=== PATIENT | female | born 2000 | race Caucasian/White ===

== ENCOUNTER 2018-02-16 09:00 | Inpatient (IN) | payer SELFPAY ==
[2018-02-16 00:51] VITALS: BMI 26.3
[2018-02-16] MEDS: Lactated Ringers 1,000 ML 50 ML IV (09:11)
[2018-02-16] MEDS: Oxytocin 30 units/NS 500 ml 30 UNITS/500 ML IV.SOLN 334 UNITS IV (09:28)
[2018-02-16 09:38] LABS: Hematocrit 35.7 % (37-47); Hemoglobin 11.8 g/dl (12.0-15.0); Mean Corp Hgb Conc 33.1 g/gl (32-36); Mean Corpuscular Hgb 27.6 pg (27.0-32.0); Mean Corpuscular Volume 83.6 fL (81-99); Mean Platelet Vol. 9.7 fl (6.2-12.0); Platelet Count 169 K/mm3 (150-450); RBC Distribution Width CV 12.9 % (11.6-14.6); RBC Distribution Width SD 38.7 fl (35.1-43.9); Red Blood Count 4.27 M/mm3 (4.2-5.4); White Blood Count 14.2 K/mm3 (4.4-11.0)
[2018-02-16] MEDS: Acetaminophen 325 MG Tablet PO ×2 (09:40→19:57)
[2018-02-16 09:41] LABS: Scan Indicated on CBC? Y/N NO
[2018-02-16] MEDS: Oxytocin 30 units/NS 500 ml 30 UNITS/500 ML IV.SOLN 167 UNITS IV (10:05)
--- NOTE | 2018-02-16 10:23 | PCM.HP.OB ---
- Problem List (1) Hx of renal calculi Status: Resolved (2) History of depression Status: Chronic (3) Anemia affecting Status: Acute Qualifiers: Trimester: third trimester Qualified Code(s): O99.013 - Anemia complicating , third trimester (4) Iron malabsorption Status: Acute Comment: Received IV iron (5) Congenital heart defect Status: Chronic Comment: Hx of leaky valve - last saw [employer] Crew Chief in [place], [place]. Echo and Heart Monitor WNL History Date of Admission: 02/16/18 Final CAROL: 02/25/18 Final CAROL Source: US <20 weeks Gestational age: 38 Weeks and 5 Days History of this : This is a 17 year-old, G [2], P [1], at 38 weeks gestational age who presented to triage reporting progressively stronger contractions throughout the night that are now 3-5 minutes apart and feelings of increased rectal pressure. Patient initiated care at [facility] at 7 weeks gestation x 15 visits. course has been complicated by chronic depression and anxiety for which she has been prescribed Zoloft 50mg PO daily. Patient also was noted to be anemic and unresponsive to PO iron supplementation so she received IV iron supplementation. Otherwise course has been unremarkable. Allergies No Known Allergies Allergy (Verified 02/16/18 01:02) Home Medications: Home Medications Ferrous Sulfate 1 cap PO DAILY 11/16/15 Pnv95/Iron Fum/Folic Acid [ Caplet] 1 each PO DAILY 11/16/15 Zoloft 50mg PO daily Smoking Status: Never smoker Alcohol: None Number of Fetus(es): 1 Heart Tracing: Baseline 130 on admission, early and variable decels noted with pushing. Moderate variability. TOCO Analysis: Ctx q 2-5 minutes apart, palpate strong History Past Pregnancies: Past Pregnancies Delivery Date Name GA/Weeks Outcome Route Weight Gender Labor Length Anesthesia Delivery Location Provider FOB 05/27/15 Eamon 41wks Live 8#2oz M Epidural Labs: GBS Neg, HIV NR, HepBsAg Neg, Rubella Immune, Syphilis Neg, H/H = 10.2/32.8 -->9.1/28.1 -->10.7/33.6, 1 hour GCT = 100, A+, Abs Screen Neg, Urine culture Neg, Urine Tox Neg, GC/CT = Neg/ Neg Expected Delivery Method: Spontaneous Vaginal Describe any other labor & delivery plans:: Interested in Nitrous, would like to avoid epidural Number of Visits: 15 Review of Systems Constitutional: Denies: Chills, Fever, Weight Change HEENT: Denies: Head Aches, Sinus Congestion, Sinus Drainage Cardiovascular: Denies: Chest Pain, Palpitations Respiratory: Denies: Cough, Shortness of breath at rest, Sputum production Gastrointestinal: Denies: Abdominal Pain, Nausea, Vomiting Genitourinary: Denies: Dysuria Musculoskeletal: Denies: Joint Pain, Joint Tenderness Skin: Denies: Rash, Wounds Neurological: Denies: Numbness, Tingling, Focal weakness Psychiatric: Denies: Anxiety, Depression, Homicidal Ideations, Suicidal Ideations Hematologic/ Lymphatic: Denies: Easy Bruising, Easy Bleeding Physical Exam Vitals: See Nursing Note - VSS and patient is afebrile General: Alert, Oriented x3, No apparent distress HEENT: Atraumatic, Normocephalic. Negative for: Thyromegaly, Lymphadenopathy Cardiovascular: Regular rate, Regular Rhythm Lungs: Clear to auscultation Abdomen: Bowel Sounds Present, Gravid Neurological: Deep Tendon Reflexes 2+/4 and Symmetrical, Neuro grossly intact COURT INTERPRETER: Normal external genitalia. Negative for: Vulvar lesions Estimated gestational size: Appropriate for gestational size Presentation: Cephalic Cervix Dilation (cm): 10 - BBOW, AROM for clear fluid Station: 0 Effacement (%): 100 Assessment/Plan All Active Problems Hx of renal calculi (Resolved) Anemia affecting (Acute) Iron malabsorption (Acute) This is a 17 year-old, G [2], P [1], at 38 weeks gestational age, Category I FHT, Second Stage of Labor P: 1) Admit patient 2) Anticipate Jory Coy BLUE PRINT CONTROL CLERK-CNM
--- NOTE | 2018-02-16 10:32 | HP.PCM_ITS ---
- Problem List (1) Hx of renal calculi Status: Resolved (2) History of depression Status: Chronic (3) Anemia affecting Status: Acute Qualifiers: Trimester: third trimester Qualified Code(s): O99.013 - Anemia complicating , third trimester (4) Iron malabsorption Status: Acute Comment: Received IV iron (5) Congenital heart defect Status: Chronic Comment: Hx of leaky valve - last saw [employer] in [place], [place]. Echo and Heart Monitor WNL History Date of Admission: 02/16/18 Final CAROL: 02/25/18 Final CAROL Source: US <20 weeks Gestational age: 38 Weeks and 5 Days History of this : This is a 17 year-old, G [2], P [1], at 38 weeks gestational age who presented to triage reporting progressively stronger contractions throughout the night that are now 3-5 minutes apart and feelings of increased rectal pressure. Patient initiated care at [facility] at 7 weeks gestation x 15 visits. course has been complicated by chronic depression and anxiety for which she has been prescribed Zoloft 50mg PO daily. Patient also was noted to be anemic and unresponsive to PO iron supplementation so she received IV iron supplementation. Otherwise course has been unremarkable. Allergies No Known Allergies Allergy (Verified 02/16/18 01:02) Home Medications: Home Medications Ferrous Sulfate 1 cap PO DAILY 11/16/15 Pnv95/Iron Fum/Folic Acid [ Caplet] 1 each PO DAILY 11/16/15 Zoloft 50mg PO daily Smoking Status: Never smoker Alcohol: None Number of Fetus(es): 1 Heart Tracing: Baseline 130 on admission, early and variable decels noted with pushing. Moderate variability. TOCO Analysis: Ctx q 2-5 minutes apart, palpate strong History Past Pregnancies: Past Pregnancies Delivery Date Name GA/Weeks Outcome Route Weight Gender Labor Length Anesthesia Delivery Location Provider FOB 05/27/15 Eamon 41wks Live 8#2oz M Epidural Labs: GBS Neg, HIV NR, HepBsAg Neg, Rubella Immune, Syphilis Neg, H/H = 10.2/32.8 -->9.1/28.1 -->10.7/33.6, 1 hour GCT = 100, A+, Abs Screen Neg, Urine culture N eg, Urine Tox Neg, GC/CT = Neg/ Neg Expected Infant Delivery Method: Spontaneous Vaginal Describe any other labor & delivery plans:: Interested in Nitrous, would like to avoid epidural Number of Visits: 15 Review of Systems Constitutional: Denies: Chills, Fever, Weight Change HEENT: Denies: Head Aches, Sinus Congestion, Sinus Drainage Cardiovascular: Denies: Chest Pain, Palpitations Respiratory: Denies: Cough, Shortness of breath at rest, Sputum production Gastrointestinal: Denies: Abdominal Pain, Nausea, Vomiting Genitourinary: Denies: Dysuria Musculoskeletal: Denies: Joint Pain, Joint Tenderness Skin: Denies: Rash, Wounds Neurological: Denies: Numbness, Tingling, Focal weakness Psychiatric: Denies: Anxiety, Depression, Homicidal Ideations, Suicidal Ideations Hematologic/ Lymphatic: Denies: Easy Bruising, Easy Bleeding Physical Exam Vitals: See Nursing Note - VSS and patient is afebrile General: Alert, Oriented x3, No apparent distress HEENT: Atraumatic, Normocephalic. Negative for: Thyromegaly, Lymphadenopathy Cardiovascular: Regular rate, Regular Rhythm Lungs: Clear to auscultation Abdomen: Bowel Sounds Present, Gravid Neurological: Deep Tendon Reflexes 2+/4 and Symmetrical, Neuro grossly intact MEDICAL EQUIPMENT SALES: Normal external genitalia. Negative for: Vulvar lesions Estimated gestational size: Appropriate for gestational size Presentation: Cephalic Cervix Dilation (cm): 10 - BBOW, AROM for clear fluid Station: 0 Effacement (%): 100 Assessment/Plan All Active Problems Hx of renal calculi (Resolved) Anemia affecting (Acute) Iron malabsorption (Acute) This is a 17 year-old, G [2], P [1], at 38 weeks gestational age, Category I FHT, Second Stage of Labor P: 1) Admit patient 2) Anticipate Jory Coy APRN-CNFátima
--- NOTE | 2018-02-16 10:57 | PCM.OB.VAG ---
- Problem List (1) Hx of renal calculi Status: Resolved (2) History of depression Status: Chronic (3) Anemia affecting Status: Acute Qualifiers: Trimester: third trimester Qualified Code(s): O99.013 - Anemia complicating , third trimester (4) Iron malabsorption Status: Acute Comment: Received IV iron (5) Congenital heart defect Status: Chronic Comment: Hx of leaky valve - last saw Psychiatric Security Nurse in [place], [place]. Echo and Heart Monitor WNL Vaginal Delivery Maternal Presentation: Active Labor - presented c/c/0 with BBOW Amniotic Membrane Rupture Type: Artificial Amniotic Fluid Description: Clear Final CAROL: 02/25/18 Gestational age: 38 Weeks and 5 Days Date of Procedure: 02/16/18 Pre-Operative Diagnosis: Spontaneous Labor, Second Stage of Labor Post-Operative Diagnosis: of viable boy baby Surgery/ Procedure Performed: Spontaneous Vaginal Delivery Type of Anesthesia: None Description of Procedure: After AROM for clear fluid upon noting patient was C/C/0 station, patient started to feel urge to bear down. Patient pushed well with urge and delivered viable boy baby over intact perineum at 0925. Infant head delivered OA, restituted to LOT then to RUFINO. Loose nuchal cord and body cord noted and baby was somersaulted through cord as shoulders and body were delivered. initially with a weak cry, placed on maternal abdomen where baby was dried and stimulated and mouth and nose was bulb suctioned. Umbilical cord clamped and cut then as infant was remaining slightly pale with mottling on face, but then started to have strong cry and improved tone and color. Apgars 7 and 9. Wt. 8#7oz. Cord gases drawn - only enough of sample for VBG to be sent. Placenta then delivered spontaneously via Wall mechanism intact with 3VC. Placental triage WNL. FF to massage, 1FB midline below umbilicus. Pitocin IV infusion given per protocol for active management of the 3rd stage. Upon inspection of vaginal vault, no lacerations noted. No repair necessary. Sponge and needle count correct. Vaginal sweep negative. EBL = 200cc. Baby to breast, bonding and [id number] initiated. Presentation: Vertex, RUFINO Placental Delivery Description: Spontaneous Placenta Disposition: [facility] Cord Vessel Description: 3 Vessels Nuchal Cord Compression: Without compression Cord Gases drawn per routine: VBG - not enough blood to draw ABG Cord Entanglement: Around neck x 1, loose - also loose body cord entanglement Estimated Blood Loss: 200 Infant A gender: Male (1 minute): 7 (5 minute): 9 Episiotomy Description: None Laceration: None Medications given after delivery: IV Pitocin Complications: None
[2018-02-16] MEDS: Ibuprofen 600 MG Tablet PO ×2 (11:07→22:41)
--- NOTE | 2018-02-16 11:09 | OP.PCM_ITS ---
- Problem List (1) Hx of renal calculi Status: Resolved (2) History of depression Status: Chronic (3) Anemia affecting Status: Acute Qualifiers: Trimester: third trimester Qualified Code(s): O99.013 - Anemia complicating , third trimester (4) Iron malabsorption Status: Acute Comment: Received IV iron (5) Congenital heart defect Status: Chronic Comment: Hx of leaky valve - last saw Acting Manager in [place], [place]. Echo and Heart Monitor WNL Vaginal Delivery Maternal Presentation: Active Labor - presented c/c/0 with BBOW Amniotic Membrane Rupture Type: Artificial Amniotic Fluid Description: Clear Final CAROL: 02/25/18 Gestational age: 38 Weeks and 5 Days Date of Procedure: 02/16/18 Pre-Operative Diagnosis: Spontaneous Labor, Second Stage of Labor Post-Operative Diagnosis: of viable boy baby Surgery/ Procedure Performed: Spontaneous Vaginal Delivery Type of Anesthesia: None Description of Procedure: After AROM for clear fluid upon noting patient was C/C/0 station, patient started to feel urge to bear down. Patient pushed well with urge and delivered viable boy baby over intact perineum at 0925. Infant head delivered OA, restitu anali to LOT then to RUFINO. Loose nuchal cord and body cord noted and baby was somersaulted through cord as shoulders and body were delivered. Infant initially with a weak cry, infant placed on maternal abdomen where baby was dried and stimulated and mouth and nose was bulb suctioned. Umbilical cord clamped and cut then as was remaining slightly pale with mottling on face, but then infant started to have strong cry and improved tone and color. Apgars 7 and 9. Wt. 8#7oz. Cord gases drawn - only enough of sample for VBG to be sent. Placenta then delivered spontaneously via Wall mechanism intact with 3VC. Placental triage WNL. FF to massage, 1FB midline below umbilicus. Pitocin IV infusion given per protocol for active management of the 3rd stage. Upon inspection of vaginal vault, no lacerations noted. No repair necessary. Sponge and needle count correct. Vaginal sweep negative. EBL = 200cc. Baby to breast, bonding and [id number] initiated. Presentation: Vertex, RUFINO Placental Delivery Description: Spontaneous Placenta Disposition: [facility] Cord Vessel Description: 3 Vessels Nuchal Cord Compression: Without compression Cord Gases drawn per routine: VBG - not enough blood to draw ABG Cord Entanglement: Around neck x 1, loose - also loose body cord entanglement Estimated Blood Loss: 200 A gender: Male (1 minute): 7 (5 minute): 9 Episiotomy Description: None Laceration: None Medications given after delivery: IV Pitocin Complications: None
[2018-02-16] MEDS: Sertraline 50 MG Tablet PO (11:40)
[2018-02-16 13:10] VITALS: BP 132/60; PULSE 60; RESP 16; TEMP 36.5; O2SAT 96
[2018-02-16 16:00] VITALS: BP 130/85; PULSE 71; RESP 14; TEMP 36.6; O2SAT 98
[2018-02-16 19:57] VITALS: BP 122/64; PULSE 75; RESP 16; TEMP 37.1; O2SAT 96
[2018-02-17 00:43] VITALS: BP 123/68; PULSE 70; RESP 16; TEMP 37.1; O2SAT 98
--- NOTE | 2018-02-17 07:08 | DCINST_ITS ---
Discharge Diet: No Restrictions Discharge Activity: Return to Normal Activity, May not drive while taking narcotic pain medications., May Shower May resume sexual activity in: 4-6 weeks Additional Activity Instructions:: Nothing in the vagina for 4-6 weeks. You may return to work/school in 6 weeks. Call your doctor if your incision/area has: Continuous Slow Oozing, Sudden Increased Bleeding, Increased Pain/ Swelling, Increased Redness, Foul Smelling Discharge Call your doctor if you observe: Fever of 101 or Higher, Inability to urinate, Inability to have a bowel movement, Using more than one pad per hour, Shortness of breath, Fainting spells, Chest pain Additional Instructions: If you experience any of the following, contact your healthcare provider. * Bleeding that soaks a pad every hour for 2 hours * Fever 100.4 or higher * Unrelieved incision or abdominal pain * Swelling, redness, discharge or bleeding from your incision or episiotomy site * Your incision begins to separate * Problems urinating (including inability to urinate or burning while urinating). * Visual changes * Severe headache * Flu-like symptoms * Pain or redness in one of both of your breasts * Pain, warmth, tenderness or swelling in your legs, especially the calf area * Frequent nausea and vomiting * Symptoms of depression or anxiety If you experience any of the following, call 911 or go to the nearest Emergency Room. * Chest pain * Problems breathing * Seizure activity * Partial or complete paralysis of a body part, slurred speech, weakness or drooping of the face, or a sudden inability to walk or hold your balance Allergies/Adverse Reactions: Allergies No Known Allergies Allergy (Verified 02/16/18 01:02) Medications to take at Discharge Ferrous Sulfate 1 cap PO DAILY 11/16/15 Pnv95/Iron Fum/Folic Acid [ Caplet] 1 each PO DAILY 11/16/15 Please Follow Up With: Jory Coy CNM When: Call to make an appointment with your provider in 2 and 6 weeks. If you had elevated Blood Pressure or 4th degree laceration you will need to be seen in 1 week. Primary Care Physician: Pattie Pop MD [Primary Care Provider] - Test Results: Test results from this visit will be discussed in further detail at your follow- up appointment, if applicable. Proposed Discharge Date: 02/17/18
--- NOTE | 2018-02-17 07:33 | PCM.PN.OB ---
Patient Problems: Active and Suspected Problems Anemia affecting (Acute) Iron malabsorption (Acute) Received IV iron Subjective: Patient sitting up in bed bonding with infant at this time. Denies any issues with urination or ambulation. Denies fever, WONG, scotoma or dizziness. Patient notes that baby is latching well and she denies any issues with . Patient desires discharge to home today pending discharge. Objective: VSS, Afebrile Nipples without cracks or blisters, no erythema noted Abdomen NT x 4 quadrants, FF midline @ 2FB below umbilicus Scant rubra lochia, intact perineum +2/4 reflexes in LE, no edema noted Negative calf tenderness to palpation BL in LE - Physical Exam General: Alert, Oriented x3, Cooperative HEENT: Atraumatic, Normocephalic Neck: Supple Lungs: Clear to auscultation, Normal air movement Cardiovascular: Regular rate, No murmurs Abdomen: Bowel Sounds Present, Soft, Non Tender Extremities: No edema, Capillary Refill Less than 3 Seconds Skin: No rashes, No breakdown Musculoskeletal: No Tenderness to Palpation of Joints or Extremities Neurological: Cranial nerves II-XII grossly intact Psych/Mental Status: Normal Affect, Appropriate Vital Signs Temp Pulse Resp BP Pulse Ox 98.7 F 70 16 123/68 H 98 02/17/18 00:43 02/17/18 00:43 02/17/18 00:43 02/17/18 00:43 02/17/18 00:43 Oxygen Delivery Method Room Air Weight: 139 lb 6 oz Body Mass Index (BMI) 26.3 Intake and Output for Last 24 Hours 02/15/18 02/16/18 02/17/18 23:59 23:59 23:59 Intake Total 200 / 200 Balance 200 / 200 Laboratory Tests Past 24 Hrs 02/16/18 02/16/18 09:09 09:09 WBC 14.2 H RBC 4.27 Hgb 11.8 L Hct 35.7 L MCV 83.6 MCH 27.6 MCHC 33.1 RDW 12.9 RDW Differential 38.7 Plt Count 169 MPV 9.7 Blood Type A POSITIVE Antibody Screen NEGATIVE Medical Necessity - Tobacco Use Smoking Status: Never smoker Assessment/Plan All Active Problems Hx of renal calculi (Resolved) Anemia affecting (Acute) Iron malabsorption (Acute) 17 y/o now, s/p , PPD #1, Normal PP Course P: 1) Discharge to home pending discharge 2) Anticipatory PP discharge teaching done 3) RTC at [facility] at 2 and 6 weeks PP Jory SAWANT
[2018-02-17 08:30] VITALS: BP 107/56; PULSE 70; RESP 16; TEMP 36.4
[2018-02-17] MEDS: Senna/Docusate Sodium 1 Tablet PO (08:52)
[2018-02-17] MEDS: Acetaminophen 325 MG Tablet PO (08:52)
[2018-02-17] MEDS: Sertraline 50 MG Tablet PO (11:41)
[2018-02-17] MEDS: Ibuprofen 600 MG Tablet PO (11:41)
--- NOTE | 2018-02-17 12:45 | NURSING ---
Patient has a social service agency director consult ordered d/t history of post depression and 17 year old. Patient D/C'd at 24 hours. Ornamenter Hand okay with patient receiving a follow up phone call from home health care social worker since no one is available today to see her. Patient explained signs and symptoms of post depression and is very aware and willing to seek help when needed. Supportive family members.
--- NOTE | 2018-02-21 15:08 | CASEMGMT ---
Social Work Labor and Delivery Unit Received message from Mely IRELAND regarding social work consult for history of depression and discharge within 24 hours. Mely left number of [phone] to call patient at. Chart reviewed and this program writer familiar with patient from previous delivery at [facility]. Called number to patient and had to leave a voice mail. Message left to call this program writer for resources. -KYLER Mcnair, PUBLIC TRANSPORTATION INSPECTOR
== END 2018-02-17 14:00 | disposition home or self-care (01) | DRG 806 ==
LOC: WPOUT 09:15
PROVIDERS: Advanced Practice Midwife; Admitting Provider Obstetrics & Gynecology; Family Provider Pediatrics; PCP Pediatrics; Referring Provider Obstetrics & Gynecology; Visit Provider Obstetrics & Gynecology
DX: O69.81X0 Labor and delivery complicated by cord around neck, without compression, not applicable or unspecified (principal); K90.9 Intestinal malabsorption, unspecified; Z37.0 Single live birth; Z3A.38 38 weeks gestation of pregnancy; D64.9 Anemia, unspecified; O99.02 Anemia complicating childbirth; Q24.9 Congenital malformation of heart, unspecified; F32.9 Major depressive disorder, single episode, unspecified; F41.9 Anxiety disorder, unspecified; O99.344 Other mental disorders complicating childbirth; O76 Abnormality in fetal heart rate and rhythm complicating labor and delivery
CPT/HCPCS: 59025; 59050; 85027; 86850; 86900; 99218; J7120; G0378

== ENCOUNTER → 2019-10-30 09:47 | Outpatient (CLI) | payer BC, MEDICAID, SELFPAY ==
[2019-10-30 09:00] VITALS: BMI 17.7
[2019-10-30 12:52] LABS: Absolute Lymphocyte Count 1.99 X10^3/uL (0.83-4.51); Absolute Neutrophil Count 2.2 X10^3/uL (2.0-7.7); Basophil# 0.02 X10^3/uL; Basophil% 0.4 % (0-1); Eosinophil# 0.08 X10^3/uL; Eosinophils% 1.7 % (0-5); Hematocrit 38.2 % (40-54); Lymphocyte # 1.99 X10^3/ul (4.0); Lymphocyte % 43.2 % (19-41); Mean Corp Hgb Conc 31.4 g/dL (32-36); Mean Corpuscular Hgb 26.1 pg (27.0-32.0); Mean Platelet Vol. 9.9 fl (6.2-12.0); Monocyte# 0.31 X10^3/uL; Monocyte% 6.7 % (0-10); NRBC Flagged by Analyzer 0 % (0-5); Neutrophil % 47.8 % (47-70); Platelet Count 247 K/mm3 (150-450); RBC Distribution Width CV 11.7 % (11.6-14.6); RBC Distribution Width SD 35.1 fl (35.1-43.9); White Blood Count 4.6 K/mm3 (4.4-11.0)
[2019-10-30 13:21] LABS: ALB/GLOB Ratio 1.2 RATIO (0.9-2.4); AST(SGOT) 16 U/L (15-37); Alanine Aminotransfer ALT/SGPT 18 U/L (16-61); Albumin, Serum 4.1 g/dL (3.2-5.0); Alkaline Phosphatase 69 U/L (45-117); Anion Gap 6 (5-15); BUN 16 mg/dL (7-18); Calcium,Total 8.7 mg/dL (8.5-10.1); Chloride 108 mmol/L (98-107); Creatinine, Serum 0.59 mg/dL (0.70-1.30); EST Glomerular Filtration Rate 182 mL/min (>60); Est Glom Filt Rate - Afr Amer 221 mL/min (>60); Ferritin 80 ng/mL (26-388); Globulin 3.5 g/dL (2.2-4.2); Glucose 80 mg/dL (74-106); Iron 82 ug/dL (65-175); Iron Binding Capacity,Total 339 ug/dL (250-450); PERCENT IRON SATURATION 24.2 % (15.0-55.0); Potassium 3.9 mmol/L (3.5-5.1); Protein, Total 7.6 g/dL (6.4-8.2); Sodium Level 141 mmol/L (136-145); T4 Free Direct 0.95 ng/dL (0.76-1.46); Thyroid Stim Hormone (TSH) 0.79 uIU/mL (0.358-3.74)
== END ==
PROVIDERS: PCP Internal Medicine; Referring Provider Nurse Practitioner Family; Visit Provider Nurse Practitioner Family
DX: D50.9 Iron deficiency anemia, unspecified (principal); R42 Dizziness and giddiness; R55 Syncope and collapse; R63.4 Abnormal weight loss
CPT/HCPCS: 36415; 80053; 82728; 83540; 83550; 84439; 84443; 85025

== ENCOUNTER → 2019-11-28 15:38 | Outpatient (CLI) | payer BC, MEDICAID, SELFPAY ==
[2019-11-26 13:04] VITALS: BMI 17.7
[2019-11-28 17:09] LABS: Absolute Lymphocyte Count 2.31 X10^3/uL (0.83-4.51); Absolute Neutrophil Count 3.6 X10^3/uL (2.0-7.7); Basophil# 0.03 X10^3/uL; Basophil% 0.5 % (0-1); Eosinophil# 0.11 X10^3/uL; Eosinophils% 1.7 % (0-5); Hematocrit 38.8 % (40-54); Hemoglobin 12.1 g/dL (13.0-16.5); Lymphocyte # 2.31 X10^3/ul (4.0); Lymphocyte % 35.4 % (19-41); Mean Corp Hgb Conc 31.2 g/dL (32-36); Mean Corpuscular Hgb 26.2 pg (27.0-32.0); Mean Corpuscular Volume 84.2 fL (80-94); Mean Platelet Vol. 10.4 fl (6.2-12.0); Monocyte# 0.44 X10^3/uL; Monocyte% 6.7 % (0-10); NRBC Flagged by Analyzer 0 % (0-5); Neutrophil # 3.61 X10^3/uL (2.7-7.7); Neutrophil % 55.4 % (47-70); Platelet Count 234 K/mm3 (150-450); RBC Distribution Width SD 36.4 fl (35.1-43.9); Red Blood Count 4.61 M/mm3 (4.6-6.2); White Blood Count 6.5 K/mm3 (4.4-11.0)
[2019-11-28 18:16] LABS: Anion Gap 6 (5-15); BUN 12 mg/dL (7-18); Calcium,Total 9.2 mg/dL (8.5-10.1); Chloride 112 mmol/L (98-107); EST Glomerular Filtration Rate 150 mL/min (>60); Est Glom Filt Rate - Afr Amer 181 mL/min (>60); Glucose 59 mg/dL (74-106); Potassium 3.6 mmol/L (3.5-5.1); Sodium Level 144 mmol/L (136-145)
[2019-11-28 18:30] LABS: Internal QC Validated? YES +Cl - CLEAR BKGD; Pregnancy, Serum, hCG Quali. NEGATIVE Negative
== END ==
PROVIDERS: PCP Nurse Practitioner Family; Visit Provider Internal Medicine Cardiovascular Disease
DX: R55 Syncope and collapse (principal); D64.9 Anemia, unspecified; I95.1 Orthostatic hypotension; R00.2 Palpitations
CPT/HCPCS: 36415; 80048; 84703; 85025

== ENCOUNTER → 2019-12-16 08:17 | Outpatient (CLI) | payer BC, MEDICAID, SELFPAY ==
[2019-11-26 13:04] VITALS: BMI 17.7
[2019-12-16 08:49] LABS: Internal QC Validated? YES +Cl - CLEAR BKGD; Pregnancy, Serum, hCG Quali. NEGATIVE Negative
--- NOTE | 2019-12-17 17:49 | PCM.TILTTABL ---
- Summary Pre Test Resting HR: 64 Pre Test Resting BP: 102/64 Minimum Test HR: 50 Maximum Test HR: 113 Minimum Test BP: 90/53 Maximum Test BP: 107/59 Physician Tilt Table Report - Patient's Physicians Primary Care Physician: Tye Brownlee NP Indications/Diagnosis: Syncope Procedure Comments: The patient was brought to the noninvasive lab in the postabsorptive nonsedated state. Initial heart rate was noted to be sinus rhythm with a rate of 71 bpm. Initial blood pressure was 99/58 mmHg. The patient was placed in the 70 degree head upright tilt position. After 20 minutes the patient was noted to be in sinus rhythm with normal blood pressure and minimal symptoms other than nausea. After that the patient was placed back in the recumbent position and given sublingual nitroglycerin 0.4 mg. The patient was then put up in the head upright sitting to a 70 degree tilt position. The patient maintained blood pressure and heart rate with occasional dizziness but no other symptomatology.. Summary: Negative head upright tilt table test with no evidence of syncope noted.
[2019-12-17 17:58] VITALS: BP 102/64; BP 107/59; BP 90/53
== END ==
PROVIDERS: PCP Nurse Practitioner Family; Referring Provider Internal Medicine Cardiovascular Disease; Visit Provider Internal Medicine Cardiovascular Disease
DX: I95.1 Orthostatic hypotension (principal); R00.2 Palpitations
CPT/HCPCS: 36415; 84703; 93660; J7040; A4216

== ENCOUNTER 2020-06-19 14:09 | Emergency (ER) | payer MEDICAID, SELFPAY ==
[2020-01-08 16:07] VITALS: BMI 16.8
[2020-06-19 14:10] VITALS: BP 117/67; PULSE 60; RESP 16; TEMP 36.2; O2SAT 100; BMI 18.7
--- NOTE | 2020-06-19 14:40 | EKG12_ITS ---
Test Reason : PASSOUTED Blood Pressure : / mmHG Vent. Rate : 061 BPM Atrial Rate : 061 BPM P-R Int : 180 ms QRS Dur : 100 ms QT Int : 412 ms P-R-T Axes : 062 060 081 degrees QTc Int : 414 ms Normal sinus rhythm with sinus arrhythmia Confirmed by KAREN ATKINSON, ELSI ([id number]), video news editor ROMIE VILLA ([id number]) on 06/22/2020 11:05:43 AM Referred By: SHAHLA Confirmed By:ELSI JONES MD
--- NOTE | 2020-06-19 14:57 | CT_ITS ---
STUDY: CT BRAIN WITHOUT CONTRAST REASON FOR EXAM: Female, 20 years old. Fall trauma head pain after injury RADIATION DOSAGE (If Supplied By Facility): CTDIvol = ( 38.43 ) mGy, DLP = ( 683.87 ) mGycm TECHNIQUE: Transaxial CT imaging of the brain was performed without administration of intravenous contrast material. Individualized dose optimization techniques were used for this CT. COMPARISON: No relevant priors. FINDINGS: Brain parenchyma is without focal lesions, mass effect, acute intracranial hemorrhage, extra parenchymal fluid collections, hydrocephalus or herniation. The skull is intact. CT/Brain/Head without Contrast IMPRESSION: 1. Normal CT brain. Electronically Signed: Alex Gonzalez MD at 16:07 EDT Tel , Service support ,
--- NOTE | 2020-06-19 15:10 | RAD_ITS ---
STUDY: X-RAY - LEFT ELBOW REASON FOR EXAM: Female, 20 years old. Fall trauma TECHNIQUE: 3 view(s) of the elbow. COMPARISON: None. FINDINGS: The bones of the elbow are intact and located. Mineralization is normal. Soft tissues are intact. There is no joint effusion. RAD/Elbow min 3 Views IMPRESSION: Normal x-ray examination of the elbow. Electronically Signed: Alex Gonzalez MD at 15:53 EDT Tel , Service support ,
[2020-06-19] MEDS: 0.9% Normal Saline 1,000 ML 1000 ML IV (15:23)
[2020-06-19 15:39] LABS: Absolute Lymphocyte Count 1.42 X10^3/uL (0.83-4.51); Absolute Neutrophil Count 5.3 X10^3/uL (2.0-7.7); Basophil# 0.03 X10^3/uL; Basophil% 0.4 % (0-1); Eosinophil# 0.09 X10^3/uL; Eosinophils% 1.2 % (0-5); Hematocrit 39.2 % (37-47); Hemoglobin 12.2 g/dL (12.0-15.0); Lymphocyte # 1.42 X10^3/ul (0.83-4.51); Lymphocyte % 19.3 % (19-41); Mean Corp Hgb Conc 31.1 g/dL (32-36); Mean Corpuscular Hgb 25.8 pg (27.0-32.0); Mean Corpuscular Volume 82.9 fL (81-99); Mean Platelet Vol. 9.2 fl (6.2-12.0); Monocyte# 0.47 X10^3/uL; Monocyte% 6.4 % (0-10); NRBC Flagged by Analyzer 0 % (0-5); Neutrophil # 5.32 X10^3/uL (2.7-7.7); Neutrophil % 72.3 % (47-70); Platelet Count 246 K/mm3 (150-450); RBC Distribution Width CV 11.7 % (11.6-14.6); RBC Distribution Width SD 35.5 fl (35.1-43.9); Red Blood Count 4.73 M/mm3 (4.2-5.4); White Blood Count 7.4 K/mm3 (4.4-11.0)
[2020-06-19 15:52] LABS: Internal QC Validated? YES +Cl - CLEAR BKGD; Pregnancy, Serum, hCG Quali. NEGATIVE Negative
[2020-06-19 15:58] LABS: Anion Gap 5 (5-15); BUN 13 mg/dL (7-18); BUN/Creat Ratio 19.6 RATIO (10-20); Calcium,Total 8.8 mg/dL (8.5-10.1); Chloride 108 mmol/L (98-107); Creatinine, Serum 0.66 mg/dL (0.55-1.02); EST Glomerular Filtration Rate 118 mL/min (>60); Est Glom Filt Rate - Afr Amer 143 mL/min (>60); Estimated Creatinine Clearance 91.91 ml/min; Glucose 86 mg/dL (74-106); Sodium Level 139 mmol/L (136-145)
--- NOTE | 2020-06-19 15:58 | EDS_ITS ---
HPI History of Present Illness Chief Complaint: Syncope Narrative Narrative: Patient reports that just before coming to the emergency department she was urinating. She went to stand up and had a syncopal episode. States that this was preceded by lightheadedness and nausea. States that she did hit her head. She is unsure about a loss of consciousness. Patient reports that she has pain to her left elbow that is 4-10 severity. She denies neck, back, shoulder, wrist, or hip pain. She reports that she has a headache that is barely there. [facility] Medical History (Updated 06/19/20 @ 16:[address] Jose Alejandro Stratton MD) Anemia Anemia affecting Congenital heart defect History of depression Hx of renal calculi Hypotension Iron malabsorption Migraines Home Medications norelgestromin-ethin.estradiol [Zafemy] 1 patch TOPICAL QWEEK 06/19/20 [History Last Taken Unknown] Allergy/AdvReac Type Severity Reaction Status Date / Time No Known Allergies Allergy Verified 06/19/20 14:35 Family History Grandmother Diabetes CVA (cerebral vascular accident) Mother Myocardial infarction Hypertension CVA (cerebral vascular accident) Sister Seizures Social History Smoking Status: Never smoker alcohol intake: never substance use type: does not use ROS ROS ED Constitutional Constitutional ED: Reports chills; Denies fever(s) or sweats Eyes Eyes: Denies change in vision ENT ENT ED: Denies sore throat Cardiovascular Cardiovascular: Denies chest pain Respiratory/Chest Respiratory/Chest: Denies cough, dyspnea or dyspnea on exertion Gastrointestinal Gastrointestinal: Reports nausea; Denies abdominal pain, diarrhea, melena or vomiting Genitourinary Genitourinary ED: Reports LMP (females 10-50) Details: Comment: (On menstrual period now.); Denies dysuria or urinary frequency Musculoskeletal Musculoskeletal: Denies myalgias Integumentary Denies rash Neurologic Neurologic: Reports headache(s); Denies paresthesias or weakness EXAM Physical Exam Const Vital Signs: 06/19/20 14:10 06/19/20 14:39 Temperature 97.2 F L Temperature Source Temporal Pulse Rate 60 Respiratory Rate 16 Respiratory Effort Normal Non-Labored Respiratory Pattern Normal Blood Pressure 117/67 Blood Pressure Mean 83 Pulse Ox 100 Oxygen Delivery Method Room Air Positive well nourished and well developed General Appearance ED: well developed HEENT Reports normocephalic and head/scalp atraumatic normocephalic and atraumatic Eyes PERRL Neck no lymphadenopathy, supple and no JVD Neck Narrative: No vertebral tenderness. Full ROM without difficulty. Cleared by NEXUS criteria. General: Negative for tenderness Chest Wall Chest: Negative for tenderness Resp normal respiratory effort and clear to auscultation bilaterally Effort and Inspection: Negative for respiratory distress Cardio regular rate, regular rhythm and no murmurs Rate: regular rate Rhythm: regular rhythm GI normal to inspection, nondistended, normoactive bowel sounds and non-tender GI Narrative: No guarding, rebound, or peritoneal signs. Palpation: soft Back/Spine Back/Spine Narrative: Nontender. Extremity full ROM Extremity Narrative: Mild tenderness palpation over left olecranon process. There is no soft tissue swelling. She has no pain is localized over the radial head. She is neuro vas intact distal to this. General Extremety ED: Yes tenderness; Negative for edema General Extremity: Negative for edema Neuro oriented x3, CN's II-XII intact bilaterally and no sensory deficits noted Sensorium / Orientation: alert Motor Exam: strength 5/5 throughout Psych Mood & Affect: depressed and tearful Skin no rashes or lesions noted MDM MDM MDM Narrative Medical decision making narrative: Patient had an IV placed. She was given a liter normal saline. She is resting comfortably. She refused nausea medications. She was given ibuprofen for her headache. Treatment plan: Patient will be discharged instructions to push fluids. Follow- up with her primary care physician in 3 to 5 days for another exam. Return to the emergency department for any worsening symptoms. Lab Data Labs: Laboratory Results - last 24 hr 06/19/20 06/19/20 06/19/20 15:25 15:25 15:25 WBC 7.4 RBC 4.73 Hgb 12.2 Hct 39.2 MCV 82.9 MCH 25.8 L MCHC 31.1 L RDW Std Deviation 35.5 RDW Coeff of Maikel 11.7 Plt Count 246 MPV 9.2 Immature Gran % (Auto) 0.400 Neut % (Auto) 72.3 H Lymph % (Auto) 19.3 [place] % (Auto) 6.4 Eos % (Auto) 1.2 Baso % (Auto) 0.4 Absolute Neuts (auto) 5.3 Absolute Lymphs (auto) 1.42 Nucleated RBC % 0 Sodium 139 Potassium 4.0 Chloride 108 H Carbon Dioxide 26.0 Anion Gap 5 BUN 13 Creatinine 0.66 Estim Creat Clear Calc 91.91 Est GFR (MDRD) Af Amer 143 Est GFR (MDRD) Non-Af 118 BUN/Creatinine Ratio 19.6 Glucose 86 Calcium 8.8 Serum , Qual NEGATIVE Radiography Diagnostic Testing: Radiology Impression Brain CT 06/19/20 14:57 IMPRESSION: 1. Normal CT brain. Electronically Signed: Alex Gonzalez MD at 16:07 EDT Tel , Service support , Elbow X-Ray 06/19/20 15:10 IMPRESSION: Normal x-ray examination of the elbow. Electronically Signed: Alex Gonzalez MD at 15:53 EDT Tel , Service support , EKG Initial EKG: Attestation: I personally reviewed and interpreted this EKG as follows: Interpretation: Sinus Rhythm Comments: EKG is sinus at 61. Nonspecific ST changes. Normal intervals. No evidence of HOCM or Brugada syndrome. Discharge Plan Triage Chief Complaint: Syncope ED Provider: Jose Alejandro Stratton Dx/Rx/DC Orders Clinical Impression: Syncope, Orthostatic hypotension, Contusion of elbow, left Instructions: ED Contusion, Elbow, ED Fainting, Uncertain Cause Prescriptions: No Action Zafemy 150-35 mcg/24 hr patch weekly 1 patch topical QWEEK RF: 0 Primary Care Provider: Tye Brownlee NP Referrals: Tye Brownlee NP, [facility] [Primary Care Provider] - 3-5 Days
[2020-06-19] MEDS: Ibuprofen 200 MG Tablet 400 MG PO (16:33)
[2020-06-19 16:41] VITALS: BP 101/76; PULSE 67; RESP 16; O2SAT 98
== END 2020-06-19 16:42 | disposition home or self-care (01) ==
PROVIDERS: Emergency Provider Emergency Medicine; PCP Nurse Practitioner Family
DX: I95.1 Orthostatic hypotension (principal); S50.02XA Contusion of left elbow, initial encounter; X58.XXXA Exposure to other specified factors, initial encounter; Y93.9 Activity, unspecified; Y92.9 Unspecified place or not applicable; Q24.9 Congenital malformation of heart, unspecified; Z86.2 Personal history of diseases of the blood and blood-forming organs and certain disorders involving the immune mechanism; Z87.442 Personal history of urinary calculi
CPT/HCPCS: 70450; 73080; 80048; 84703; 85025; 93005; 99285; A4216

== ENCOUNTER → 2020-07-16 06:26 | Outpatient (CLI) | payer MEDICAID, SELFPAY ==
[2020-06-23 13:13] VITALS: BMI 18.7
[2020-06-24 13:09] VITALS: BMI 18.7
--- NOTE | 2020-07-16 07:57 | TELEMED_ITS ---
[facility] has confirmed receipt of a request for visit. This document confirms receipt of the order initiating the consult. To find the results of the consultation, please view the patient's reports for the scanned Telemed Consult.
== END ==
PROVIDERS: PCP Internal Medicine; Referring Provider Internal Medicine; Visit Provider Internal Medicine
DX: R55 Syncope and collapse (principal)
CPT/HCPCS: 95819

== ENCOUNTER → 2020-08-25 15:17 | Outpatient (CLI) | payer MEDICAID, SELFPAY ==
[2020-08-25 15:04] VITALS: BMI 18.7
[2020-08-25 16:53] LABS: Absolute Lymphocyte Count 1.91 X10^3/uL (0.83-4.51); Absolute Neutrophil Count 2.8 X10^3/uL (2.0-7.7); Basophil# 0.03 X10^3/uL; Basophil% 0.6 % (0-1); Eosinophil# 0.19 X10^3/uL; Eosinophils% 3.6 % (0-5); Hematocrit 36.2 % (37-47); Hemoglobin 11.2 g/dL (12.0-15.0); Lymphocyte # 1.91 X10^3/ul (0.83-4.51); Lymphocyte % 36.5 % (19-41); Mean Corp Hgb Conc 30.9 g/dL (32-36); Mean Corpuscular Hgb 25.8 pg (27.0-32.0); Mean Corpuscular Volume 83.4 fL (81-99); Mean Platelet Vol. 10.5 fl (6.2-12.0); Monocyte# 0.33 X10^3/uL; Monocyte% 6.3 % (0-10); NRBC Flagged by Analyzer 0 % (0-5); Neutrophil # 2.77 X10^3/uL (2.7-7.7); Neutrophil % 52.8 % (47-70); Platelet Count 286 K/mm3 (150-450); RBC Distribution Width CV 11.9 % (11.6-14.6); RBC Distribution Width SD 36.2 fl (35.1-43.9); Red Blood Count 4.34 M/mm3 (4.2-5.4); White Blood Count 5.2 K/mm3 (4.4-11.0)
[2020-08-25 17:18] LABS: ALB/GLOB Ratio 1.1 RATIO (0.9-2.4); AST(SGOT) 19 U/L (15-37); Alanine Aminotransfer ALT/SGPT 21 U/L (13-56); Albumin, Serum 3.9 g/dL (3.2-5.0); Alkaline Phosphatase 52 U/L (45-117); Anion Gap 7 (5-15); BUN 12 mg/dL (7-18); BUN/Creat Ratio 15.7 RATIO (10-20); Calcium,Total 9.3 mg/dL (8.5-10.1); Chloride 106 mmol/L (98-107); Creatinine, Serum 0.77 mg/dL (0.55-1.02); EST Glomerular Filtration Rate 100 mL/min (>60); Est Glom Filt Rate - Afr Amer 121 mL/min (>60); Globulin 3.5 g/dL (2.2-4.2); Glucose 99 mg/dL (74-106); Potassium 3.8 mmol/L (3.5-5.1); Protein, Total 7.4 g/dL (6.4-8.2); Sodium Level 141 mmol/L (136-145)
== END ==
PROVIDERS: PCP Internal Medicine; Referring Provider Internal Medicine; Visit Provider Internal Medicine
DX: I95.1 Orthostatic hypotension (principal)
CPT/HCPCS: 36415; 80053; 85025

== ENCOUNTER → 2020-10-13 11:03 | Outpatient (CLI) | payer MEDICAID, SELFPAY ==
[2020-10-13 13:05] LABS: Internal QC Validated? YES +Cl - CLEAR BKGD
[2020-10-13 13:48] LABS: Pregnancy, Serum, hCG Quali. POSITIVE Negative
== END ==
PROVIDERS: PCP Internal Medicine; Referring Provider Internal Medicine; Visit Provider Internal Medicine
DX: R11.0 Nausea (principal)
CPT/HCPCS: 36415; 84703

== ENCOUNTER 2021-01-23 16:10 | Emergency (ER) | payer MEDICAID, SELFPAY ==
[2021-01-23 16:11] VITALS: BP 121/55; PULSE 76; RESP 15; TEMP 36.2; O2SAT 100; BMI 19.5
[2021-01-23 17:37] LABS: Mucous, Urine 0 SEEN /hpf (<or=2+)
[2021-01-23 17:42] LABS: Glucose, Dipstick Normal (Normal); Ketone-Dipstick Negative (Negative); Leukocyte Esterase-Dipstick 500 /ul (Negative); Nitrite-Dipstick Negative (Negative); Occult Blood-Urine 250 /ul (Negative); Protein-Dipstick 15 mg/dl (Negative); Specific Gravity, Urine 1.005 (1.002-1.030); Urine Bilirubin Dipstick Negative (Negative); Urine Clarity Cloudy (Clear); Urine Urobilinogen Normal (Normal)
--- NOTE | 2021-01-23 17:46 | ED.VIS.FEGU ---
HPI HPI - Female History of Present Illness Chief Complaint: Informant: patient Narrative Narrative: Patient is a 20-year-old female, G5, P2 currently 18 weeks with twin gestation presenting with lower abdominal pain. Patient states she started feeling pelvic fracture about 3 days ago. She started having more cramping pain today. She did feel like Faywood Mueller contractions but does not think she is far enough along to have them. She also is concerned because today she has felt decreased movement of baby A. Denies any abnormal vaginal discharge or bleeding. States her due date is June 23. Her WEB ARCHITECT is Dr. Dutta. [facility] Medical History Anemia Anemia affecting History of depression Hx of renal calculi Hypotension Iron malabsorption Migraines Mitral valve prolapse Nausea Home Medications aspirin 81 mg PO DAILY 01/23/21 [History Last Taken Unknown] nitrofurantoin monohyd/m-cryst [Macrobid] 100 mg PO Q12H 7 Days #14 cap 01/23/21 [Rx Last Taken Unknown] [id number] [] 1 tab PO DAILY 01/23/21 [History Last Taken Unknown] Allergy/AdvReac Type Severity Reaction Status Date / Time No Known Allergies Allergy Verified 01/23/21 16:11 Family History Grandmother Diabetes CVA (cerebral vascular accident) Mother Myocardial infarction Hypertension CVA (cerebral vascular accident) Sister Seizures Surgical History H/O tilt table evaluation (11/2019) Social History Smoking Status: Former smoker alcohol intake: never substance use type: does not use ROS ROS ED Constitutional Constitutional ED: Denies chills or fever(s) Eyes Eyes: Denies blurry vision or change in vision Cardiovascular Cardiovascular: Denies chest pain Respiratory/Chest Respiratory/Chest: Denies dyspnea Gastrointestinal Gastrointestinal: Reports abdominal pain; Denies diarrhea, nausea or vomiting Genitourinary Genitourinary ED: Denies dysuria, hematuria or urinary frequency Musculoskeletal Musculoskeletal: Denies arthralgias or myalgias Integumentary Denies rash Neurologic Neurologic: Denies headache(s) or weakness Psychiatric Psychiatric: Denies depression EXAM Physical Exam Const Vital Signs: 01/23/21 16:11 Temperature 97.1 F L Temperature Source Temporal Pulse Rate 76 Respiratory Rate 15 Blood Pressure 121/55 H Blood Pressure Mean 77 Pulse Ox 100 Oxygen Delivery Method Room Air Positive well nourished and well developed Constitutional Narrative: Patient is eating chips when I initially walked into the room General Appearance ED: well developed HEENT Reports moist mucous membranes Negative for tenderness Eyes PERRL and EOMs intact bilaterally Neck supple Resp normal respiratory effort and clear to auscultation bilaterally Cardio regular rate, regular rhythm and no murmurs GI GI Narrative: Nontender. Enlarged uterus with fundus palpable approximately 2 cm above the umbilicus. no CVA tenderness Extremity normal to inspection and full ROM General Extremety ED: Negative for edema General Extremity: Negative for edema Neuro oriented x3 Sensorium / Orientation: alert Psych mental status grossly normal Skin no rashes or lesions noted MDM MDM MDM Narrative Medical decision making narrative: Patient evaluated for pelvic cramping and discomfort associated . She is very well-appearing and eating a snack when I walk in. Bedside ultrasound performed by myself shows cardiac activity for baby A and baby B. Heart rates are 146 and 158 respectively. Urinalysis will be obtained to rule out UTI as a cause of her symptoms. Patient states she is drink three bottles of water today. She is not having any bleeding or abnormal discharge will not perform a pelvic exam at this time. Urinalysis consistent with UTI. Culture is pending. Will be started on Macrobid. First dose is given in the emergency room. Instructed to call her WEB ARCHITECT office tomorrow to let them know how she is feeling. If she still symptomatic they will see her otherwise she can just follow-up on the following week as already scheduled. This is discussed with WEB ARCHITECT onion tier, Dr. Jaramillo. Patient is agreeable this plan of care. Discharged home in stable condition. Lab Data Attestation: I reviewed the patient's lab results. Labs: Laboratory Results - last 24 hr 01/23/21 17:05 Urine Color SEE COMMENT BELOW Urine Clarity Cloudy Urine pH 7.0 Ur Specific [place] 1.005 Urine Protein 15 H Urine Glucose (UA) Normal Urine Ketones Negative Urine Occult Blood 250 H Urine Nitrite Negative Urine Bilirubin Negative Urine Urobilinogen Normal Ur Leukocyte Esterase 500 H Urine RBC 25-50 SEEN Urine WBC 5-10 SEEN Ur Squamous Epith Cells 0-5 SEEN Urine Bacteria 1+ Urine Mucus 0 SEEN Discharge Plan Triage Chief Complaint: ED Provider: Janae Gale Dx/Rx/DC Orders Clinical Impression: UTI (urinary tract infection), Hematuria, Pelvic pain affecting Instructions: ED CYSTITIS Female Adult Prescriptions: New nitrofurantoin monohyd/m-cryst [Macrobid] 100 mg capsule 100 mg PO Q12H 7 Days Qty: 14 RF: 0 No Action 1 mg Tablet 1 tab PO DAILY RF: 0 aspirin 81 mg Tablet 81 mg PO DAILY RF: 0 Primary Care Provider: Benjamin Walker Referrals: Benjamin Walker MD [Primary Care Provider] - Marla Jaramillo DO [STAFF PHYSICIAN] - (Call tomorrow to let them know how you are feeling ) Activity Restrictions/Additional Instructions: Call your WEB ARCHITECT tomorrow. If you are still having symptoms they will see you sooner. Otherwise they will follow-up with you as scheduled the following week. Take the entire course of antibiotics. Disposition Disposition: Home, Self Care
[2021-01-23 17:48] LABS: Color, Urine SEE COMMENT BELOW (Yellow)
[2021-01-23 17:49] LABS: Squamous Epithelial Cells - UA 0-5 SEEN /hpf (5-10)
[2021-01-23 17:50] LABS: Bacteria 1+ /hpf (None Seen)
[2021-01-23 17:51] LABS: White Blood Cells 5-10 SEEN /hpf (0-5)
[2021-01-23 17:52] LABS: Red Blood Cells-Urine 25-50 SEEN /hpf (0-5)
[2021-01-23] MEDS: Nitrofurantoin Macrocrystals 100 MG Capsule PO (18:29)
[2021-01-23 18:32] VITALS: BP 120/78; PULSE 81; RESP 16; O2SAT 98
== END 2021-01-23 18:33 | disposition home or self-care (01) ==
PROVIDERS: Emergency Provider Emergency Medicine; PCP Internal Medicine
DX: O23.42 Unspecified infection of urinary tract in pregnancy, second trimester (principal); N39.0 Urinary tract infection, site not specified; O26.892 Other specified pregnancy related conditions, second trimester; R31.9 Hematuria, unspecified; R10.2 Pelvic and perineal pain; O30.002 Twin pregnancy, unspecified number of placenta and unspecified number of amniotic sacs, second trimester; O99.891 Other specified diseases and conditions complicating pregnancy; I34.1 Nonrheumatic mitral (valve) prolapse; Z3A.18 18 weeks gestation of pregnancy; Z87.442 Personal history of urinary calculi; Z87.891 Personal history of nicotine dependence; Z79.82 Long term (current) use of aspirin
CPT/HCPCS: 81001; 87086; 99283

== ENCOUNTER 2021-04-08 13:25 | Outpatient (CLI) | payer BC, MEDICAID, SELFPAY ==
[2021-04-08 13:37] VITALS: BMI 25.2
[2021-04-08 13:58] VITALS: BP 110/63; PULSE 81
[2021-04-08 14:00] VITALS: BP 110/63; PULSE 85; PULSE 90; TEMP 36.9; O2SAT 98; O2SAT 99
[2021-04-08 14:01] VITALS: TEMP 36.9
[2021-04-08 14:09] LABS: ROM Internal Control Test YES-OK TO RESULT pt. (Internal QC); ROM Patient Test Negative (Negative)
[2021-04-08 15:50] VITALS: BP 109/57; PULSE 83
[2021-04-08 15:51] VITALS: PULSE 113; TEMP 36.8; O2SAT 100; O2SAT 99
--- NOTE | 2021-04-08 17:02 | NURSING ---
RN obtained FFN swab at 1645 and VE-inner os closed/1 cm outer os/50%/-2. Dr. Ling notified and okay for pt to be d/c to home and cancel FFN since cervix is closed.
--- NOTE | 2021-04-10 05:15 | OB.TRI.NOTE ---
HPI - General HPI Narrative DENISE ANGLIN, is a 20 F who presents with possible LOF. Maternal Data Information Final CAROL: 06/23/21 Gestational age: 29&1 PFSH PFSH Medical History Anemia Anemia affecting History of depression Hx of renal calculi Hypotension Iron malabsorption Migraines Mitral valve prolapse Nausea Home Medications aspirin 81 mg PO DAILY 01/23/21 [History Last Taken Unknown] nitrofurantoin monohyd/m-cryst [Macrobid] 100 mg PO Q12H 7 Days #14 cap 01/23/21 [Rx Last Taken Unknown] [id number] [] 1 tab PO DAILY 01/23/21 [History Last Taken Unknown] Allergy/AdvReac Type Severity Reaction Status Date / Time No Known Allergies Allergy Verified 01/23/21 16:11 Family History Grandmother Diabetes CVA (cerebral vascular accident) Mother Myocardial infarction Hypertension CVA (cerebral vascular accident) Sister Seizures Surgical History H/O tilt table evaluation (11/2019) Social History Smoking Status: Former smoker alcohol intake: never substance use type: does not use History Elective abortions Hx Para 1 Spontaneous abortions Hx # Term Pregnancies Ectopic pregnancies Hx # Pregnancies Multiple births # of living children NST FHR Rate Baby A Baseline: 130 Variability:: Moderate Accelerations:: 10 x 10 Decelerations:: Variable NST Reactive:: Yes Uterine Activity:: Irregular FHR Rate Baby B Baseline: 140 Variability:: Moderate Accelerations:: 10 x 10 Decelerations:: Variable NST Reactive:: Yes Uterine Activity:: Irregular Assessment & Plan (1) Threatened premature labor: QUALIFIERS: Trimester: third trimester Qualified Code(s): O47.03 - False labor before 37 completed weeks of gestation, third trimester COMMENT: 29&1 twin PLAN: ROM plus negative No evidence PTL reactive NST x2
== END 2021-04-08 23:59 | disposition home or self-care (01) ==
LOC: WPOUT 13:27 → WP 13:28
PROVIDERS: PCP Internal Medicine; Visit Provider Obstetrics & Gynecology
DX: O47.03 False labor before 37 completed weeks of gestation, third trimester (principal); O30.003 Twin pregnancy, unspecified number of placenta and unspecified number of amniotic sacs, third trimester; Z87.891 Personal history of nicotine dependence; Z79.82 Long term (current) use of aspirin; O36.8331 Maternal care for abnormalities of the fetal heart rate or rhythm, third trimester, fetus 1; O36.8332 Maternal care for abnormalities of the fetal heart rate or rhythm, third trimester, fetus 2; Z3A.29 29 weeks gestation of pregnancy
CPT/HCPCS: 59025; 59050; 84112; 99218; G0378

== ENCOUNTER 2021-04-28 15:24 | Outpatient (CLI) | payer MEDICAID, SELFPAY ==
[2021-04-28] MEDS: Lactated Ringers 1,000 ML 999 ML IV (15:28)
[2021-04-28 15:42] VITALS: BP 119/67; PULSE 77
[2021-04-28 15:51] VITALS: BMI 26.7
[2021-04-28 16:42] LABS: Fetal Fibronectin Negative
[2021-04-28 16:44] LABS: ALB/GLOB Ratio 0.6 RATIO (0.9-2.4); AST(SGOT) 24 U/L (15-37); Alanine Aminotransfer ALT/SGPT 13 U/L (13-56); Albumin, Serum 2.4 g/dL (3.2-5.0); Alkaline Phosphatase 180 U/L (45-117); Anion Gap 7 (5-15); BUN 9 mg/dL (7-18); BUN/Creat Ratio 16.6 RATIO (10-20); Calcium,Total 8.4 mg/dL (8.5-10.1); Chloride 103 mmol/L (98-107); Creatinine, Serum 0.54 mg/dL (0.55-1.02); EST Glomerular Filtration Rate 148 mL/min (>60); Est Glom Filt Rate - Afr Amer 179 mL/min (>60); Estimated Creatinine Clearance 129.24 ml/min; Globulin 3.8 g/dL (2.2-4.2); Glucose 97 mg/dL (74-106); Potassium 3.9 mmol/L (3.5-5.1); Protein, Total 6.2 g/dL (6.4-8.2); Sodium Level 135 mmol/L (136-145)
[2021-04-28] MEDS: 0.9% Saline Lock 10 ML Syringe IV (17:16)
[2021-04-28 18:13] VITALS: BP 118/61; PULSE 85
[2021-04-28] MEDS: Betamethasone/Betamethasone 30 MG/5 ML Vial 12 MG IM (19:17)
--- NOTE | 2021-05-02 08:29 | OB.TRI.HP_ITS ---
HPI - General HPI Narrative DENISE ANGLIN, is a 21 F who presents at 32 weeks with Di/Di twin gestation with complaint of irregular contractions. Presented to office for contractions and evaluation. Cervical dilation 1cm and FFN collected. Patient uncomfortable to go home and still kareem and decision made to be seen for triage in L&D. No leakage of fluid or vaginal bleeding. Has been hydrating well, limited activity and no recent intercourse. Maternal Data Information CAROL Calculator Estimated Delivery Date Method Current WG Current Estimate 06/23/21 Manual 32w 4d PFSH PFSH Medical History Anemia Anemia affecting History of depression Hx of renal calculi Hypotension Iron malabsorption Migraines Mitral valve prolapse Nausea Home Medications aspirin 81 mg PO DAILY 01/23/21 [History Last Taken 04/28/21 12:15] nitrofurantoin monohyd/m-cryst [Macrobid] 100 mg PO Q12H 7 Days #14 cap 01/23/21 [Rx Last Taken Unknown] [id number] [] 1 tab PO DAILY 01/23/21 [History Last T aken 04/28/21 12:00 1 tab] iron 65 tab PO 04/28/21 [History Last Taken Unknown] sertraline 50 mg PO DAILY 04/28/21 [History Last Taken 04/28/21 12:00 50 mg] Allergy/AdvReac Type Severity Reaction Status Date / Time No Known Allergies Allergy Verified 04/28/21 15:52 Family History Grandmother Diabetes CVA (cerebral vascular accident) Mother Myocardial infarction Hypertension CVA (cerebral vascular accident) Sister Seizures Surgical History H/O tilt table evaluation (11/2019) Social History Smoking Status: Former smoker alcohol intake: never substance use type: does not use History Elective abortions Hx Para 1 Spontaneous abortions Hx # Term Pregnancies Ectopic pregnancies Hx # Pregnancies Multiple births # of living children Physical Exam Narrative: 1cm/50/-3 NST FHR Rate Baby A Baseline: 145 Variability:: Moderate Accelerations:: 15 x 15 Decelerations:: Variable NST Reactive:: Yes Uterine Activity:: Irregular every 2-5 minutes, mild FHR Rate Baby B Baseline: 135 Variability:: Moderate Accelerations:: 15 x 15 Decelerations:: Variable NST Reactive:: Yes Assessment & Plan (1) Dichorionic diamniotic twin : QUALIFIERS: Trimester: third trimester Qualified Code(s): O30.043 - Twin , dichorionic/diamniotic, third trimester (2) Threatened premature labor: QUALIFIERS: Trimester: third trimester Qualified Code(s): O47.03 - False labor before 37 completed weeks of gestation, third trimester COMMENT: 32.0 weeks Di/Di twins PLAN: 1) IV hydration 1 liter LR bolus 2) CMP 3) No cervical change after evaluation in triage and decreased discomfort and contraction strength/frequency. 4) Consulted , will give Celestone 12mg IM once and repeat in 24 hours 5) D/C home and follow up in office
== END 2021-04-28 23:59 | disposition home or self-care (01) ==
LOC: WPOUT 15:27 → WP 15:27
PROVIDERS: PCP Internal Medicine; Visit Provider Advanced Practice Midwife
DX: O47.03 False labor before 37 completed weeks of gestation, third trimester (principal); O30.043 Twin pregnancy, dichorionic/diamniotic, third trimester; Z79.82 Long term (current) use of aspirin; Z87.891 Personal history of nicotine dependence; Z3A.32 32 weeks gestation of pregnancy; O36.8331 Maternal care for abnormalities of the fetal heart rate or rhythm, third trimester, fetus 1; O36.8332 Maternal care for abnormalities of the fetal heart rate or rhythm, third trimester, fetus 2; O99.343 Other mental disorders complicating pregnancy, third trimester; F32.A Depression, unspecified; Z79.899 Other long term (current) drug therapy
CPT/HCPCS: 96360; 96361; 36415; 59025; 59050; 80053; 82731; 96372; 99218; J7120; A4216; G0378; J0702

== ENCOUNTER 2021-04-29 19:30 | Outpatient (CLI) | payer MEDICAID, SELFPAY ==
[2021-04-29 19:39] VITALS: BMI 27.4
[2021-04-29] MEDS: Betamethasone/Betamethasone 30 MG/5 ML Vial 12 MG IM (20:00)
--- NOTE | 2021-04-29 22:36 | OB.TRI.NOTE ---
HPI - General HPI Narrative DENISE ANGLIN, is a 21 F at 32.0 weeks gestation Di/Di twins who presents for second dose of steroid injection. She was seen in the unit last night for contractions. She was monitored with no cervical change and given Celestone 12 mg IM x1. She denies any current contractions or pain. Positive movements. Maternal Data Information CAROL Calculator Estimated Delivery Date Method Current WG Current Estimate 06/23/21 Manual 32w 1d PFSH PFSH Medical History Anemia Anemia affecting History of depression Hx of renal calculi Hypotension Iron malabsorption Migraines Mitral valve prolapse Nausea Home Medications aspirin 81 mg PO DAILY 01/23/21 [History Last Taken 04/28/21 12:15] nitrofurantoin monohyd/m-cryst [Macrobid] 100 mg PO Q12H 7 Days #14 cap 01/23/21 [Rx Last Taken Unknown] [id number] [] 1 tab PO DAILY 01/23/21 [History Last Taken 04/28/21 12:00 1 tab] iron 65 tab PO 04/28/21 [History Last Taken Unknown] sertraline 50 mg PO DAILY 04/28/21 [History Last Taken 04/28/21 12:00 50 mg] Allergy/AdvReac Type Severity Reaction Status Date / Time No Known Allergies Allergy Verified 04/28/21 15:52 Family History Grandmother Diabetes CVA (cerebral vascular accident) Mother Myocardial infarction Hypertension CVA (cerebral vascular accident) Sister Seizures Surgical History H/O tilt table evaluation (11/2019) Social History Smoking Status: Former smoker alcohol intake: never substance use type: does not use History Elective abortions Hx Para 1 Spontaneous abortions Hx # Term Pregnancies Ectopic pregnancies Hx # Pregnancies Multiple births # of living children ROS Eyes Eyes: Denies blurry vision Cardiovascular Cardiovascular: Reports none; Denies chest pain at rest, chest pain with activity or dizziness Respiratory/Chest Respiratory/Chest: Denies cough or dyspnea Gastrointestinal Gastrointestinal: Reports none and other; Denies diarrhea or vomiting Genitourinary Genitourinary: Denies dysuria Musculoskeletal Musculoskeletal: Reports none Integumentary Integumentary: Reports none; Denies rash Neurologic Neurologic: Denies dizziness, headache(s) or other visual disturbances Psychiatric Psychiatric: Reports none Physical Exam Const alert and no apparent distress General Appearance: cooperative Orientation / Consciousness: awake Exam Limitations: no limitations HEENT normocephalic Eyes General Eye: normal appearance of both eyes Neck full ROM Chest inspection of chest normal Resp normal respiratory effort and normal air movement Effort and Inspection: symmetric chest movement Auscultation: clear to auscultation bilaterally Cardio regular rate GI soft to palpation, non-tender and non-distended Inspection: and other Back/Spine normal ROM Extremity full ROM, normal capillary refill and no calf tenderness Skin no rashes or lesions noted Neuro oriented x3 and CN's II-XII intact bilaterally Psych mental status grossly normal Assessment & Plan (1) Threatened premature labor: QUALIFIERS: Trimester: third trimester Qualified Code(s): O47.03 - False labor before 37 completed weeks of gestation, third trimester COMMENT: 32.0 weeks Di/Di twins (2) Dichorionic diamniotic twin : QUALIFIERS: Trimester: third trimester Qualified Code(s): O30.043 - Twin , dichorionic/diamniotic, third trimester PLAN: Celestone 12 mg IM x1 now (this is the second dose) PTL precautions reviewed Follow up in office this week Dr. Dutta notified
== END 2021-04-29 23:59 | disposition home or self-care (01) ==
LOC: WPOUT 19:38 → WP 19:38
PROVIDERS: PCP Internal Medicine; Visit Provider Advanced Practice Midwife
DX: O47.03 False labor before 37 completed weeks of gestation, third trimester (principal); O30.043 Twin pregnancy, dichorionic/diamniotic, third trimester; Z87.891 Personal history of nicotine dependence; Z79.82 Long term (current) use of aspirin; Z3A.32 32 weeks gestation of pregnancy
CPT/HCPCS: J0702

== ENCOUNTER 2021-05-19 10:33 | Inpatient (IN) | payer MEDICAID, SELFPAY ==
[2021-05-19] VITALS (44 sets, daily range): BP systolic 104–144; BP diastolic 52–94; PULSE 44–89; RESP 12–16; TEMP 36–37.2; O2SAT 88–100; BMI 27.6
[2021-05-19] MEDS: Lactated Ringers 1,000 ML 50 ML IV (11:35)
[2021-05-19] MEDS: Lactated Ringers 500 ML 999 ML IV ×2 (11:40→15:26)
[2021-05-19 11:58] LABS: Absolute Lymphocyte Count 1.44 X10^3/uL (0.83-4.51); Absolute Neutrophil Count 6.4 X10^3/uL (2.0-7.7); Basophil# 0.05 X10^3/uL; Basophil% 0.6 % (0-1); Eosinophil# 0.03 X10^3/uL; Eosinophils% 0.3 % (0-5); Hematocrit 32.6 % (37-47); Hemoglobin 10.3 g/dL (12.0-15.0); Lymphocyte # 1.44 X10^3/ul (0.83-4.51); Lymphocyte % 16.6 % (19-41); Mean Corp Hgb Conc 31.6 g/dL (32-36); Mean Corpuscular Hgb 24.5 pg (27.0-32.0); Mean Corpuscular Volume 77.4 fL (81-99); Mean Platelet Vol. 9.8 fl (6.2-12.0); Monocyte# 0.65 X10^3/uL; Monocyte% 7.5 % (0-10); NRBC Flagged by Analyzer 0 % (0-5); Neutrophil # 6.36 X10^3/uL (2.7-7.7); Neutrophil % 73.4 % (47-70); POSITIVE MORPHOLOGY YES; Platelet Count 140 K/mm3 (150-450); RBC Distribution Width CV 22.4 % (11.6-14.6); RBC Distribution Width SD 60.4 fl (35.1-43.9); Red Blood Count 4.21 M/mm3 (4.2-5.4); White Blood Count 8.7 K/mm3 (4.4-11.0)
[2021-05-19 12:04] LABS: Differential Indicated SCAN CRITERIA MET
[2021-05-19 12:30] LABS: Anisocytosis RARE
--- NOTE | 2021-05-19 12:32 | PCM.HP.OB ---
HPI - General General Date of Admission: 05/19/21 HPI Narrative DENISE ANGLIN, is a 21 F @ 35 weeks, di/di twins with polyhydramnios who presented to office for routine visit- uncomfortable with contractions- VE 4-5/-2. Pt sent to L&d for labor. Received celestone on 04/28 and 04/29/21. Maternal Data Information CAROL Calculator Estimated Delivery Date Method Current WG Current Estimate 06/23/21 Manual 35w 0d PFSH PFSH Medical History (Updated 05/19/21 @ 12:[address] Marisol Holloway MD) Anemia Anemia affecting Anxiety History of depression Hx of renal calculi Hypotension Iron malabsorption Migraines Mitral valve prolapse Nausea Polyhydramnios depression Seizures Home Medications aspirin 81 mg PO DAILY 01/23/21 [History Last Taken 05/18/21 12:00] [id number] [] 1 tab PO DAILY 01/23/21 [History Last Taken 05/18/21 12:00] iron 65 tab PO 04/28/21 [History Last Taken 05/18/21 12:00] sertraline 50 mg PO DAILY 04/28/21 [History Last Taken 05/18/21 12:00] Allergy/AdvReac Type Severity Reaction Status Date / Time No Known Allergies Allergy Verified 05/19/21 11:46 Family History Grandmother Diabetes CVA (cerebral vascular accident) Mother Myocardial infarction Hypertension CVA (cerebral vascular accident) Sister Seizures Surgical History H/O tilt table evaluation (11/2019) Social History Smoking Status: Former smoker alcohol intake: never substance use type: does not use History Elective abortions Hx Para 2 Spontaneous abortions Hx # Term Pregnancies Ectopic pregnancies Hx # Pregnancies Multiple births # of living children NST FHR Rate Baby A Baseline: 130 Variability:: Moderate Accelerations:: 15 x 15 Decelerations:: None NST Reactive:: Yes FHR Category:: Category I Uterine Activity:: 1-2min FHR Rate Baby B Baseline: 130 Variability:: Moderate Accelerations:: 15 x 15 Decelerations:: None NST Reactive:: Yes FHR Category:: Category I Uterine Activity:: 1-2min Vital Signs Vital Signs Vital Signs: 05/19/21 11:38 05/19/21 11:48 05/19/21 12:03 Temperature Temperature Source Pulse Rate 81 76 77 Blood Pressure 129/64 H 112/66 109/61 BP Systolic 129 112 109 BP Diastolic 64 66 61 Pulse Ox 05/19/21 12:05 05/19/21 12:07 Temperature 99.0 F Temperature Source Temporal Pulse Rate Blood Pressure BP Systolic BP Diastolic Pulse Ox 99 Weight Weight: 68.492 kg Body Mass Index (BMI) 27.6 Labs Labs Labs: Blood Type A POSITIVE Antibody Screen NEGATIVE Hct 32.6 % (37-47) L Hgb 10.3 g/dL (12.0-15.0) L Group B Strep DNA Pending Rhogam given: No Assessment & Plan (1) Dichorionic diamniotic twin gestation: QUALIFIERS: Trimester: third trimester Qualified Code(s): O30.043 - Twin , dichorionic/diamniotic, third trimester (2) 35 weeks gestation of : (3) labor: QUALIFIERS: labor trimester: third trimester labor delivery status: without delivery Qualified Code(s): O60.03 - labor without delivery, third trimester (4) Polyhydramnios affecting : PLAN: Admit to L&D Montior FHR/TOCO Epidural if requested for pain Monitor VS Anticipate peds notified celestone previoulsy given GBS rapid pending will delivery in OR - reviewed possible need for breech extraction, internal podalic version, emergent cs - pt understands risks of delivery and wishes to proceed. At this time twins are Vertex, vertex.
--- NOTE | 2021-05-19 13:41 | PCM.PN.BLA ---
Progress Note VE: /-2 AROM- clear fluid- large amount. Plan for delivery in OR. PEDS aware.
--- NOTE | 2021-05-19 14:56 | PCM.PN.BLA ---
Progress Note late entry: VE performed- -/80/-2 Clear fluid still leaking. Pt still declining epidural at this time.
[2021-05-19 15:41] LABS: Probe Check PASS
[2021-05-19 15:43] LABS: Group B Strep DNA By PCR Negative (Negative); Internal Control PASS; Specimen Processing Control PASS
[2021-05-19] MEDS: fentaNYL-bupivacaine (epidural) 100 ML BAG EPIDURAL (15:45)
[2021-05-19] MEDS: Oxytocin 30 units/NS 500 ml 30 UNITS/500 ML IV.SOLN 334 UNITS IV (17:48)
--- NOTE | 2021-05-19 17:58 | EX.PCM.OBRPT ---
Assessment & Plan (1) Polyhydramnios affecting : (2) Vaginal delivery: (3) Twin delivered vaginally: Maternal Data Information CAROL Calculator Estimated Delivery Date Method Current WG Current Estimate 06/23/21 Manual 35w 0d Vaginal Delivery Maternal Presentation Maternal Presentation: Active Labor Operative Information Date of Procedure: 05/19/21 Pre-Operative Diagnosis: di/di twins, 35 weeks, polyhydramnios, active labor Post-Operative Diagnosis: same, live male infants Surgery / Procedure Performed: Spontaneous Vaginal Delivery Type of Anesthesia: Epidural Drain: Abreu to straight drain Estimated Blood Loss: 300 Time of Delivery: 17:26 (TWIN A) Findings Description of Procedure: Epidural was adequate. Patient was comfortable. Twin A progressed to fully dilated. Patient was taken to the operating room for a double set up. With good maternal pushing efforts twin A head delivered without complication followed by the rest the 's body. The was vigorous at and was placed on the mother's chest. Delayed cord clamping was performed. Mouth nose were suctioned. Waiting nursery team was present. After the cord was clamped and cut ultrasound was used to visualize twin B. Twin B was in an unstable lie transverse back up. The infant's head was extremely high and parts were palpated. At this point my decision for backup in case of the need for an emergency section. At this time Dr. Cyn Bustos was called and was on her way in. We continue to monitor the heart tones. Once Dr. Bustos arrived agreed that there was an unstable lie. At this time she attempted to get both legs. Upon doing this membranes were ruptured. Large amount of amniotic fluid was clear. At this time Dr. Bustos was able to grab both infant feet. And do a breech extraction. Twin B was delivered and cord was clamped and cut and handed to the waiting nursery team. Presentation: Vertex Amniotic Membrane Rupture Type: Artificial Amniotic Fluid Description: Clear Placental Delivery Description: Expressed Placenta Disposition: [facility] Specimen(s) Removed: Placenta Cord Vessel Description: 3 Vessels Cord Entanglement: None Nuchal Cord Compression: Without compression Infant A Gender: Male (1 minute): 9 (5 minute): 9 Delayed Cord Clamping: Yes Post Vaginal Delivery Medications Given After Delivery: IV Pitocin Episiotomy Description: None Laceration: None Complication Complications: None Admit VTE Documentation VTE Present on Admission: No VTE Pharm Prophylaxis Ordered: No Baby B Information Amniotic Membrane Rupture Type: Artificial Presentation: Footling Breech (Unstable lie. Twin B was transverse. Breech extraction was performed.) Operative Information Mode of Delivery: Vaginal Cord Vessel Description: 3 Vessels Cord Entanglement: None Nuchal Cord Compression: Without compression Infant B gender: Male (1 minute): 8 (5 minute): 9 Delayed Cord Clamping: No
[2021-05-19] MEDS: Methylergonovine 0.2 MG/ML Ampul IM (18:30)
--- NOTE | 2021-05-19 19:10 | NURSING ---
this RN received report from Lety Salmeron RN and is assuming care of pt at this time
[2021-05-19] MEDS: Acetaminophen 500 MG Tablet 1000 MG PO (19:51)
[2021-05-19] MEDS: Ondansetron 4 MG/2 ML Vial IV (19:56)
--- NOTE | 2021-05-19 20:13 | NURSING ---
pt has indwelling urinary catheter at this time to be removed when pt feels legs are back to normal
[2021-05-19] MEDS: 0.9% Saline Lock 10 ML Syringe IV (20:25)
--- NOTE | 2021-05-19 20:50 | NURSING ---
epidural catheter removed at this time tip intact, pt tolerated well, rated pain 0/10, bandaid applied
--- NOTE | 2021-05-19 22:31 | NURSING ---
irizarry catheter removed at 2210 intact, pt tolerated well, rated pain 0/10, irizarry placed by previous RN prior to delivery and after epidural placement
[2021-05-20] MEDS: Ibuprofen 600 MG Tablet PO ×4 (00:36→17:58)
[2021-05-20 01:30] VITALS: BP 120/65; PULSE 63; RESP 16; TEMP 37.1; O2SAT 97
[2021-05-20 04:10] VITALS: BP 104/58; PULSE 60; RESP 16; TEMP 35.9; O2SAT 96
[2021-05-20 06:11] LABS: Hematocrit 37.7 % (37-47); Hemoglobin 11.8 g/dL (12.0-15.0); Mean Corp Hgb Conc 31.3 g/dL (32-36); Mean Corpuscular Hgb 24.6 pg (27.0-32.0); Mean Corpuscular Volume 78.7 fL (81-99); POSITIVE MORPHOLOGY YES; Platelet Count 167 K/mm3 (150-450); RBC Distribution Width CV 22.3 % (11.6-14.6); RBC Distribution Width SD 61.7 fl (35.1-43.9); Red Blood Count 4.79 M/mm3 (4.2-5.4); White Blood Count 15.3 K/mm3 (4.4-11.0)
[2021-05-20 06:12] LABS: Scan Indicated on CBC? Y/N YES- FLAGS NOTED
[2021-05-20 06:45] LABS: Differential Comment SCANNED
--- NOTE | 2021-05-20 07:39 | PN_ITS ---
Subjective Subjective patient seen at bedside, doing well. Patient reports good pain control. lochia mild. breast feeding. Twin B in SCN due to feeding cue issues. Objective Data Objective Data Vital Signs: Vital Signs Temp Pulse Resp BP Pulse Ox 96.7 F L 60 16 104/58 L 96 05/20/21 04:10 05/20/21 04:10 05/20/21 04:10 05/20/21 04:10 05/20/21 04:10 Oxygen Delivery Method Room Air Weight: 68.492 kg Body Mass Index (BMI) 27.6 Intake & Output: Intake and Output for Last 24 Hours 05/18/21 05/19/21 05/20/21 23:59 23:59 23:59 Intake Total 2500.00 / 2500.00 Output Total 1450 / 1450 500 / 500 Balance 1050.00 / 1050.00 -500 / -500 Lab / Micro Data Result Diagrams: 05/20/21 06:00 Labs: Laboratory Results - last 24 hr 05/19/21 11:35: WBC 8.7, RBC 4.21, Hgb 10.3 L, Hct 32.6 L, MCV 77.4 L, MCH 24.5 L, MCHC 31.6 L, RDW Std Deviation 60.4 H, RDW Coeff of Maikel 22.4 H, Plt Count 140 L, MPV 9.8, Immature Gran % (Auto) 1.600 H, Neut % (Auto) 73.4 H, Lymph % (Auto) 16.6 L, [place] % (Auto) 7.5, Eos % (Auto) 0.3, Baso % (Auto) 0.6, Absolute Neuts (auto) 6.4, Absolute Lymphs (auto) 1.44, Nucleated RBC % 0, Anisocytosis RARE 05/19/21 11:35: Blood Type A POSITIVE, Antibody Screen NEGATIVE 05/19/21 11:35: Group B Strep DNA Negative, Specimen Comment Not Reportable 05/20/21 06:00: WBC 15.3 H, RBC 4.79, Hgb 11.8 L, Hct 37.7, MCV 78.7 L, MCH 24.6 L, MCHC 31.3 L, RDW Std Deviation 61.7 H, RDW Coeff of Maikel 22.3 H, Plt Count 167, MPV 10.0, Differential Comment SCANNED Micro: Microbiology 05/19/21 11:35 Nasal Secretion SARS-CoV-2 Antigen (Rapid) - Final Physical Exam Const alert and oriented x3 General Appearance: cooperative HEENT normocephalic Neck General: normal visual inspection GI soft to palpation and non-distended GI Narrative: Fundus firm Extremity normal to inspection and no calf tenderness Skin no rashes or lesions noted Neuro oriented x3 and CN's II-XII intact bilaterally Psych mental status grossly normal Assessment & Plan Assessment/Plan (1) Twin delivered vaginally: PLAN: PPD#1 , Doing well Routine care pain mgmt ambulation
[2021-05-20 09:11] VITALS: BP 103/56; PULSE 59; RESP 16; TEMP 36.3
[2021-05-20] MEDS: Acetaminophen 500 MG Tablet 1000 MG PO (11:23)
[2021-05-20] MEDS: Senna/Docusate Sodium 1 Tablet PO (11:24)
[2021-05-20] MEDS: Sertraline 50 MG Tablet PO (11:24)
[2021-05-20 12:00] VITALS: PULSE 61; RESP 16; TEMP 36.2
[2021-05-20 17:00] VITALS: BP 111/65; PULSE 84; RESP 16; TEMP 36.3
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
[2021-05-20 22:15] VITALS: BP 107/59; PULSE 71; RESP 16; TEMP 36.8; O2SAT 98
[2021-05-21 03:30] VITALS: BP 116/70; PULSE 76; RESP 16; TEMP 37.2; O2SAT 98
[2021-05-21] MEDS: Ibuprofen 600 MG Tablet PO ×2 (04:25→11:57)
--- NOTE | 2021-05-21 08:25 | PCM.PN.OB ---
Subjective Subjective Doing well per patient and nursing staff. Ambulating and taking PO without difficulty. Voiding and passing flatus. Pain controlled. Denies headache, visual changes, chest pain, shortness of breath, leg pain or increased bleeding. Lochia normal. Objective Data Objective Data Vital Signs: Vital Signs Temp Pulse Resp BP Pulse Ox 98.9 F 76 16 116/70 98 05/21/21 03:30 05/21/21 03:30 05/21/21 03:30 05/21/21 03:30 05/21/21 03:30 Oxygen Delivery Method Room Air Weight: 151 lb Body Mass Index (BMI) 27.6 Intake & Output: Intake and Output for Last 24 Hours 05/19/21 05/20/21 05/21/21 23:59 23:59 23:59 Intake Total 2500.00 / 2500.00 Output Total 1450 / 1450 500 / 500 Balance 1050.00 / 1050.00 -500 / -500 Lab / Micro Data Result Diagrams: 05/20/21 06:00 Micro: Microbiology 05/19/21 11:35 Nasal Secretion SARS-CoV-2 Antigen (Rapid) - Final ROS Constitutional Constitutional: Reports systems reviewed and no addt'l complaints, except as documented; Denies headache(s) Eyes Eyes: Denies acute decrease in peripheral vision, blurry vision or change in vision ENT HEENT: Reports systems reviewed and no addt'l complaints, except as documented Cardiovascular Cardiovascular: Denies chest pain or dizziness Respiratory/Chest Respiratory/Chest: Denies cough, dyspnea, dyspnea on exertion, shortness of breath at rest or shortness of breath with exertion Gastrointestinal Gastrointestinal: Denies abdominal pain, diarrhea, nausea or vomiting Genitourinary Genitourinary: Denies abdominal discomfort Musculoskeletal Musculoskeletal: Denies limited range of motion Integumentary Integumentary: Reports systems reviewed and no addt'l complaints, except as documented Neurologic Neurologic: Reports systems reviewed and no addt'l complaints, except as documented Psychiatric Psychiatric: Reports systems reviewed and no addt'l complaints, except as documented Endocrine Endocrinology: Reports systems reviewed and no addt'l complaints, except as documented Hematologic/Lymphatic Hematologic/Lymphatic: Reports systems reviewed and no addt'l complaints, except as documented Allergic/Immunologic Allergic/Immunologic: Reports systems reviewed and no addt'l complaints, except as documented Physical Exam Const alert and oriented x3 General Appearance: cooperative Orientation / Consciousness: awake, oriented to person, oriented to place and oriented to time Exam Limitations: no limitations HEENT normocephalic Head and Scalp: normal to inspection, normocephalic and atraumatic Face and Sinus: normal facial exam Eyes General Eye: normal appearance of both eyes Neck full ROM Chest Chest: symmetrical chest wall rise Resp normal respiratory effort and normal air movement Auscultation: clear to auscultation bilaterally Cardio regular rate, regular rhythm, S1 normal heart sound, S2 normal heart sound, no murmurs, no rub, no gallops and no clicks GI normal to inspection, nondistended, normoactive bowel sounds and non-tender appearance of the vagina normal Bladder / Kidney Exam: no CVA tenderness Back/Spine normal ROM Extremity normal to inspection and full ROM Skin no rashes or lesions noted Neuro oriented x3, CN's II-XII intact bilaterally and moves all extremities Sensorium / Orientation: awake, alert and oriented to person Motor Exam: clonus absent Deep Tendon Reflexes: Rt Patellar (L4): 2+ and Lt Patellar (L4): 2+ Assessment & Plan (1) Twin delivered vaginally: (2) Vaginal delivery: PLAN: 1) Routine care 2) , services 3) Planning discharge to hotel status due to baby being in special care nursery 4) Follow up in 2 weeks and 6 weeks PP
--- NOTE | 2021-05-21 08:29 | PCM.DC.SUM ---
Providers Date of Admission: 05/19/21 Primary Care Physician: Dr. Benjamin Walker MD Reason For Visit: VAG DELIVERY Diagnosis Discharge Diagnosis (1) Twin delivered vaginally: Status: Acute Code(s): O30.009 - Twin , unspecified number of placenta and unspecified number of amniotic sacs, unspecified trimester (2) Vaginal delivery: Status: Acute Code(s): O80 - Encounter for full-term uncomplicated delivery Medications at Discharge Home Medications [id number]-[id number] 1 tab PO DAILY 01/23/21 sertraline 50 mg PO DAILY 04/28/21 acetaminophen 1,000 mg PO Q6H PRN PRN #0 tab 05/21/21 ibuprofen 600 mg PO Q6H PRN PRN #0 tab 05/21/21 Weight / BMI Weight Weight: 151 lb Body Mass Index (BMI) 27.6 ABG / Lab / Microbiology Data Result Diagrams: 05/20/21 06:00 Microbiology: Microbiology 05/19/21 11:35 Nasal Secretion SARS-CoV-2 Antigen (Rapid) - Final Meaningful Use Info Meaningful Use Diagnoses (Choose all that apply): None applicable Discharge Plan Admission Admit Date/Time: 05/19/21 10:33 Primary Reason for Your Visit: Twin Vaginal Delivery Attending Provider: Marisol Holloway Primary Care Provider: Benjamin Walker Instructions Patient Instructions: After a Vaginal Discharge Orders/Prescriptions Prescriptions: New acetaminophen 500 mg Tablet 1,000 mg PO Q6H PRN PRN (Reason: Pain 1-10 Or Fever) Qty: 0 RF: 0 ibuprofen 600 mg Tablet 600 mg PO Q6H PRN PRN (Reason: Pain Score 1-3) Qty: 0 RF: 0 Continued tlgeucte-vye-Ht-FA 1 mg Tablet 1 tab PO DAILY RF: 0 sertraline 50 mg Tablet 50 mg PO DAILY RF: 0 Discontinued aspirin 81 mg Tablet 81 mg PO DAILY RF: 0 iron 50 mg iron Tablet 65 tab PO RF: 0 Referrals / Follow Up: Marisol Holloway MD [STAFF PHYSICIAN] - (Follow up in 2 weeks virtual visit and 6 weeks ) Benjamin Walker MD [Primary Care Provider] - Disposition Disposition (needs filled in before D/C Order can be placed): Home, Self Care
[2021-05-21 09:17] VITALS: BP 110/61; PULSE 82; RESP 14; TEMP 37; O2SAT 96
[2021-05-21] MEDS: Sertraline 50 MG Tablet PO (10:45)
[2021-05-21 14:30] VITALS: BP 115/57; PULSE 73; RESP 16; TEMP 36.4
[2021-05-21] MEDS: Acetaminophen 500 MG Tablet 1000 MG PO (14:51)
== END 2021-05-21 18:15 | disposition home or self-care (01) | DRG 560 ==
PROVIDERS: Admitting Provider Obstetrics & Gynecology; PCP Internal Medicine; Visit Provider Obstetrics & Gynecology
DX: O40.3XX0 Polyhydramnios, third trimester, not applicable or unspecified (principal); Z37.2 Twins, both liveborn; O99.42 Diseases of the circulatory system complicating childbirth; I34.1 Nonrheumatic mitral (valve) prolapse; O69.81X1 Labor and delivery complicated by cord around neck, without compression, fetus 1; F41.9 Anxiety disorder, unspecified; O99.344 Other mental disorders complicating childbirth; Z3A.35 35 weeks gestation of pregnancy; Z79.82 Long term (current) use of aspirin; Z79.899 Other long term (current) drug therapy; Z87.442 Personal history of urinary calculi; O69.81X2 Labor and delivery complicated by cord around neck, without compression, fetus 2; Z39.1 Encounter for care and examination of lactating mother
CPT/HCPCS: 59025; 59050; 85025; 85027; 86850; 86900; 86901; 87081; 87426; 87653; 99218; J7120; A4216; G0378; J2405

== ENCOUNTER → 2021-11-14 | Outpatient (CLI) | payer MEDICAID, SELFPAY ==
[2021-11-14 16:43] LABS: Absolute Lymphocyte Count 2.63 X10^3/uL (0.83-4.51); Absolute Neutrophil Count 3.9 X10^3/uL (2.0-7.7); Basophil# 0.05 X10^3/uL; Basophil% 0.7 % (0-1); Eosinophil# 0.45 X10^3/uL; Hematocrit 39.3 % (37-47); Hemoglobin 12.3 g/dL (12.0-15.0); Lymphocyte # 2.63 X10^3/ul (0.83-4.51); Lymphocyte % 35.3 % (19-41); Mean Corp Hgb Conc 31.3 g/dL (32-36); Mean Corpuscular Hgb 26.8 pg (27.0-32.0); Mean Corpuscular Volume 85.6 fL (81-99); Mean Platelet Vol. 9.7 fl (6.2-12.0); Monocyte# 0.47 X10^3/uL; Monocyte% 6.3 % (0-10); NRBC Flagged by Analyzer 0 % (0-5); Neutrophil # 3.85 X10^3/uL (2.7-7.7); Neutrophil % 51.6 % (47-70); Platelet Count 267 K/mm3 (150-450); RBC Distribution Width CV 12.1 % (11.6-14.6); RBC Distribution Width SD 37.4 fl (35.1-43.9); Red Blood Count 4.59 M/mm3 (4.2-5.4); White Blood Count 7.5 K/mm3 (4.4-11.0)
[2021-11-14 17:08] LABS: ALB/GLOB Ratio 1.1 RATIO (0.9-2.4); AST(SGOT) 10 U/L (15-37); Alanine Aminotransfer ALT/SGPT 17 U/L (13-56); Alkaline Phosphatase 106 U/L (45-117); Anion Gap 5 (5-15); BUN 17 mg/dL (7-18); BUN/Creat Ratio 26.2 RATIO (10-20); Calcium,Total 9.7 mg/dL (8.5-10.1); Chloride 108 mmol/L (98-107); Creatinine, Serum 0.65 mg/dL (0.55-1.02); EST Glomerular Filtration Rate 120 mL/min (>60); Est Glom Filt Rate - Afr Amer 145 mL/min (>60); Globulin 3.8 g/dL (2.2-4.2); Glucose 82 mg/dL (74-106); Potassium 4.4 mmol/L (3.5-5.1); Protein, Total 7.8 g/dL (6.4-8.2); Sodium Level 142 mmol/L (136-145)
== END | disposition home or self-care (01) ==
LOC: BIMLAB 15:24
PROVIDERS: PCP Internal Medicine; Visit Provider Internal Medicine
DX: R56.9 Unspecified convulsions (principal); R51.9 Headache, unspecified
CPT/HCPCS: 36415; 80053; 85025

== ENCOUNTER → 2021-11-30 | Outpatient (CLI) | payer MEDICAID, SELFPAY ==
--- NOTE | 2021-11-30 12:36 | MRI_ITS ---
EXAM: MR HEAD WITHOUT AND WITH INTRAVENOUS CONTRAST CLINICAL INDICATION: Headache. ? Seizure TECHNIQUE: Multiplanar and multisequence MR images of the brain were obtained without and with intravenous contrast. This report was created using [employer] technology. CONTRAST: IV 10cc clariscan COMPARISON: 06.19.20 ct FINDINGS: BRAIN AND EXTRA-AXIAL SPACES: Unremarkable. No intra- or extra-axial hemorrhage. No evidence of acute infarct. No intracranial mass or mass effect. There is preservation of the dowling/white matter interface. Posterior fossa structures are unremarkable. Ventricles are appropriate for age. No hydrocephalus. Basal cisterns are patent. SELLA: Unremarkable. Normal sella turcica, pituitary gland, infundibular stalk, optic chiasm and hypothalamus. AUDITORY SYSTEM: Unremarkable. The internal auditory canals are patent. BONES/JOINTS: Unremarkable. No discrete lytic or blastic abnormalities. SINUSES: Unremarkable as visualized. Clear. MASTOID AIR CELLS: Unremarkable as visualized. Clear. ORBITS: Unremarkable as visualized. Both globes, extraocular muscles, optic nerves and retrobulbar fat appear unremarkable. VASCULATURE: Unremarkable as visualized. Normal flow voids in the major intracranial circulation. MRI/Brain W/WO Contrast IMPRESSION: Negative MRI brain without and with intravenous contrast. Electronically Signed: Kaveh Espino MD at 15:43 EDT ,
== END | disposition home or self-care (01) ==
LOC: MRI 12:36
PROVIDERS: PCP Internal Medicine; Visit Provider Internal Medicine
DX: R51.9 Headache, unspecified (principal); R56.9 Unspecified convulsions
CPT/HCPCS: 70553; A9575

== ENCOUNTER 2022-02-01 13:37 | Outpatient (CLI) | payer MEDICAID, SELFPAY ==
[2022-02-01 15:36] LABS: Absolute Lymphocyte Count 1.88 X10^3/uL (0.83-4.51); Absolute Neutrophil Count 3.1 X10^3/uL (2.0-7.7); Basophil# 0.05 X10^3/uL; Basophil% 0.9 % (0-1); Eosinophil# 0.42 X10^3/uL; Eosinophils% 7.2 % (0-5); Hematocrit 36.7 % (37-47); Hemoglobin 11.8 g/dL (12.0-15.0); Lymphocyte # 1.88 X10^3/ul (0.83-4.51); Lymphocyte % 32.3 % (19-41); Mean Corp Hgb Conc 32.2 g/dL (32-36); Mean Corpuscular Hgb 26.6 pg (27.0-32.0); Mean Corpuscular Volume 82.8 fL (81-99); Mean Platelet Vol. 10.5 fl (6.2-12.0); Monocyte# 0.35 X10^3/uL; NRBC Flagged by Analyzer 0 % (0-5); Neutrophil # 3.11 X10^3/uL (2.7-7.7); Neutrophil % 53.4 % (47-70); Platelet Count 233 K/mm3 (150-450); RBC Distribution Width CV 11.8 % (11.6-14.6); RBC Distribution Width SD 35.7 fl (35.1-43.9); Red Blood Count 4.43 M/mm3 (4.2-5.4); White Blood Count 5.8 K/mm3 (4.4-11.0)
[2022-02-01 15:56] LABS: Vitamin B12 460 pg/mL (211-911); Vitamin D,25 Hydroxy 12.8 ng/mL
[2022-02-01 16:00] LABS: ALB/GLOB Ratio 1.2 RATIO (0.9-2.4); AST(SGOT) 9 U/L (15-37); Alanine Aminotransfer ALT/SGPT 21 U/L (13-56); Albumin, Serum 3.8 g/dL (3.2-5.0); Alkaline Phosphatase 103 U/L (45-117); Anion Gap 8 (5-15); BUN 12 mg/dL (7-18); BUN/Creat Ratio 16.6 RATIO (10-20); Calcium,Total 8.8 mg/dL (8.5-10.1); Chloride 111 mmol/L (98-107); Creatinine, Serum 0.72 mg/dL (0.55-1.02); EST Glomerular Filtration Rate 105 mL/min (>60); Est Glom Filt Rate - Afr Amer 127 mL/min (>60); Globulin 3.2 g/dL (2.2-4.2); Glucose 83 mg/dL (74-106); Potassium 3.4 mmol/L (3.5-5.1); Sodium Level 145 mmol/L (136-145); T4 Free Direct 0.84 ng/dL (0.76-1.46); Thyroid Stim Hormone (TSH) 0.54 uIU/mL (0.358-3.74)
== END 2022-02-01 23:59 | disposition home or self-care (01) ==
LOC: BIMLAB 13:37
PROVIDERS: PCP Internal Medicine; Referring Provider Internal Medicine; Visit Provider Internal Medicine
DX: Z13.29 Encounter for screening for other suspected endocrine disorder (principal); R55 Syncope and collapse; Z13.21 Encounter for screening for nutritional disorder
CPT/HCPCS: 36415; 80053; 82306; 82607; 84439; 84443; 85025

== ENCOUNTER → 2022-06-09 | Outpatient (CLI) | payer MEDICAID, SELFPAY ==
[2022-06-09 12:04] LABS: Absolute Neutrophil Count 2.1 X10^3/uL (2.0-7.7); Basophil# 0.04 X10^3/uL; Eosinophils% 2.4 % (0-5); Hematocrit 39.4 % (37-47); Hemoglobin 12.3 g/dL (12.0-15.0); Lymphocyte % 33.3 % (19-41); Mean Corp Hgb Conc 31.2 g/dL (32-36); Mean Corpuscular Hgb 26.5 pg (27.0-32.0); Mean Corpuscular Volume 84.9 fL (81-99); Mean Platelet Vol. 10.2 fl (6.2-12.0); Monocyte# 0.52 X10^3/uL; Monocyte% 12.4 % (0-10); NRBC Flagged by Analyzer 0 % (0-5); Neutrophil # 2.13 X10^3/uL (2.7-7.7); Neutrophil % 50.7 % (47-70); Platelet Count 194 K/mm3 (150-450); RBC Distribution Width CV 11.9 % (11.6-14.6); RBC Distribution Width SD 36.2 fl (35.1-43.9); Red Blood Count 4.64 M/mm3 (4.2-5.4); White Blood Count 4.2 K/mm3 (4.4-11.0)
[2022-06-09 12:29] LABS: ALB/GLOB Ratio 1.2 RATIO (0.9-2.4); AST(SGOT) 14 U/L (15-37); Alanine Aminotransfer ALT/SGPT 20 U/L (13-56); Alkaline Phosphatase 81 U/L (45-117); Anion Gap 2 (5-15); BUN 9 mg/dL (7-18); BUN/Creat Ratio 14.4 RATIO (10-20); Chloride 106 mmol/L (98-107); Creatinine, Serum 0.62 mg/dL (0.55-1.02); EST Glomerular Filtration Rate 124 mL/min (>60); Est Glom Filt Rate - Afr Amer 151 mL/min (>60); Globulin 3.4 g/dL (2.2-4.2); Glucose 92 mg/dL (74-106); Potassium 3.4 mmol/L (3.5-5.1); Protein, Total 7.4 g/dL (6.4-8.2); Sodium Level 136 mmol/L (136-145)
== END | disposition home or self-care (01) ==
PROVIDERS: PCP Internal Medicine; Referring Provider Internal Medicine; Visit Provider Internal Medicine
DX: I95.9 Hypotension, unspecified (principal)
CPT/HCPCS: 36415; 80053; 85025

== ENCOUNTER 2022-11-24 06:12 | Day surgery (SDC) | payer MEDICAID, SELFPAY ==
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
[2022-11-24 06:39] VITALS: BP 104/61; PULSE 66; RESP 18; TEMP 36.3; O2SAT 100; BMI 18.4
[2022-11-24 07:06] LABS: Internal QC Validated? YES +Cl - CLEAR BKGD
[2022-11-24 07:07] LABS: Pregnancy, Urine Negative Negative
[2022-11-24] MEDS: Lactated Ringers 1,000 ML 15 ML IV (07:08)
[2022-11-24 07:20] LABS: Hematocrit 38.7 % (37-47); Mean Corpuscular Hgb 26.3 pg (27.0-32.0); Mean Corpuscular Volume 84.7 fL (81-99); Mean Platelet Vol. 9.7 fl (6.2-12.0); Platelet Count 234 K/mm3 (150-450); RBC Distribution Width CV 11.7 % (11.6-14.6); RBC Distribution Width SD 35.7 fl (35.1-43.9); Red Blood Count 4.57 M/mm3 (4.2-5.4); White Blood Count 4.9 K/mm3 (4.4-11.0)
--- NOTE | 2022-11-24 07:30 | FALS_PTH ---
PATIENT: DENISE ANGLIN [place] [facility] [place][id number] AGE/SX: 22/F ROOM: RE11/24/[address]: Dr. Marisol Holloway, MDDOB: 2000 BED: DIS: 11/24/2022 SPEC #: [id number] RECD: 11/24/22 10:51 STATUS: GRACIE REMauro #: [id number] SERAFIN: 11/24/22 07:[address]: Marisol Holloway DEPT: SURGICAL PATHOLOGY RECD BY: Lissett Alvarez ENTERED: 11/24/22 11:48 SP TYPE: FALL TUBES OTHR DR: Dr. Benjamin Walker MD Tissues: Fallopian tube Procedures: Surgery Specimen Level II Surgery Specimen Level IV HEADER OPERATION: Laparoscopic salpingectomy PRE-OP DIAGNOSIS: Permanent sterilization TISSUE SUBMITTED: Bilateral fallopian tubes MICROSCOPIC DIAGNOSIS Right and left fallopian tubes, bilateral salpingectomies: Complete cross-sections of bilateral fallopian tubes. One fallopian tube with benign paratubal cysts. AM:humphrey 11/27/2022 MICROSCOPIC DESCRIPTION Slides are reviewed. GROSS DESCRIPTION Received in fixative is one container labeled with the patient's name and designated bilateral fallopian tubes. The specimen consists of bilateral fallopian tubes including fimbrial ends measuring 7.5 cm in length and up to 1.0 cm in diameter and 4.5 cm in length and 0.6 cm in diameter. The fallopian tubes are not identified as right or left. Sections reveal unremarkable cut surfaces. A paratubal cyst is noted measuring 1.0 cm in greatest dimension on the smaller fallopian tube. National Insurance Officer sections are submitted in two cassettes as follows: 1 - one fallopian tube, 2 - second fallopian tube and paratubal cyst. / YOLY:humphrey 11/24/2022 TC:5 CPT: 86366, 10740
[2022-11-24] MEDS: Bupivacaine Mpf 0.5% 30 ML VIAL (08:00)
[2022-11-24 08:35] VITALS: BP 104/61; BP 119/82; PULSE 100; RESP 16; TEMP 36.9; O2SAT 100
[2022-11-24 08:45] VITALS: BP 104/61; BP 105/62; PULSE 68; RESP 16; O2SAT 100
--- NOTE | 2022-11-24 08:45 | DCINST_ITS ---
Discharge Instructions Diet Discharge Diet: No restrictions Activity May resume sexual activity in: 2 weeks Lifting Restrictions: 20-25 lbs Dressing / Incision Call your doctor if your incision/area has: Continuous Slow Oozing, Sudden Increased Bleeding, Increased Pain/ Swelling, Increased Redness, Foul Smelling Discharge and Swelling at the incision site Call your doctor if you observe: Fever of 101 or Higher, Inability to urinate, Inability to have a bowel movement, Using more than 1 pad per hour and Uncontrolled pain Additional Dressing/Incision Instructions:: You have skin glue over your incision sites, do not pick off. You may shower and let the soap and water run over the incision sites and dab dry. Follow Up Care Please Follow Up With: Marisol Holloway MD When: 1-2 weeks post OP if you need an appointment please call [phone] Test Results: Test results from this visit will be discussed in further detail at your follow- up appointment, if applicable. Discharge Plan Admission Attending Provider: Marisol Holloway Primary Care Provider: Benjamin Walker Discharge Orders/Prescriptions Prescriptions: No Action midodrine 5 mg tablet 5 mg PO TID 90 Days Qty: 270 3RF Rx Instructions: do not give last dose of day after 6PM or within 4 hrs of bedtime sertraline 50 mg tablet 50 mg PO QHS Patient Comments: take 1 tablet by mouth once daily Referrals / Follow Up: Benjamin Walker MD [Primary Care Provider] - Disposition Disposition (needs filled in before D/C Order can be placed): Home, Self Care
--- NOTE | 2022-11-24 08:48 | PCM.OPRPT ---
Report of Operation Date of Procedure: 11/24/22 Pre-Operative Diagnosis: desires sterilzation Post-Operative Diagnosis: same Surgery/Procedure Performed:: laparoscopic bilateral salpingectomy Description of Surgical Findings:: Normal tubes and ovaries bilaterally. Paratubal cyst on the right. Surgeon: Marisol Holloway victorian literature professor: Jordan Lopez Type of Anesthesia: General and Local Special Medications: 0.5% marcaine Specimen's removed: bilateral fallopian tubes Estimated Blood Loss (mL): <5cc Description of Procedure: After informed consent was obtained patient was taken to the operating room she was placed in supine position she was given anesthesia. She was then placed in the [facility] and she was prepped and draped in normal sterile fashion. Bladder was drained prior to the start of procedure. At this time attention was turned to the vaginal portion where weighted speculum placed at posterior fornix vagina single-tooth tenaculum was used to gently grasp the internal the cervix. uterus was gently sounded to approximately 8 cm. Uterine manipulator was placed without difficulty. Legs then placed in parallel with the abdomen the tenaculum and the weighted speculum were removed. 2 towel clamps were placed at level of umbilicus. Marcaine was injected infraumbilical and a small incision was made. The 5 mm trocar was placed under direct visualization. CO2 gas was used to insufflate the intra-abdominal cavity. Upon inspection no gross abnormalities appreciated- the uterus tubes and ovaries appeared to be normal- small paratubal cyst on right. At this time then the LLQ and RLQ ports were placed First Marcaine was injected and small incision was made a knife and the 5 mm trocars were placed. At this time then tubes were traced back to the fimbriated ends. Enseal was used to coagulate and ligate along mesosalpynx bilaterally until tubes removed completely. Good hemostasis was appreciated. At this time procedure was deemed complete successful. The gas was desufflated on from the intra-abdominal cavity. The trochars were removed. Skin was closed using 4-0 Monocryl in a subcutaneous fashion. Dermabond glue was placed. Instrument lap and needle counts were correct ?2. The uterine manipulator was removed. Vaginal sweep was performed it was negative. There were no complications anticipated normal postoperative course for this patient. Procedure Start Time: 08:00 Procedure Stop Time: 08:21 Complications none Admit VTE Documentation VTE Present on Admission: Yes VTE Mechan Device Prophylaxis: SCD's VTE Pharm Prophylaxis ordered?: No Reason prophylaxis not ordered:: Procedure Not Indicated
[2022-11-24 08:59] VITALS: BP 104/61; BP 95/61; PULSE 62; RESP 16; TEMP 36.6; O2SAT 100
[2022-11-24] MEDS: Ketorolac 30 MG/ML Syringe IM (09:03)
[2022-11-24] MEDS: Ondansetron 4 MG/2 ML Vial IV (10:32)
[2022-11-24 10:35] VITALS: BP 103/52; BP 104/61; PULSE 69; RESP 16; TEMP 36.5; O2SAT 99
[2022-11-24 11:22] VITALS: BP 104/61
== END 2022-11-24 11:24 | disposition home or self-care (01) ==
LOC: SDC 06:15 → AC 06:16
PROVIDERS: Anesthesiology; PCP Internal Medicine; Referring Provider Obstetrics & Gynecology; Visit Provider Obstetrics & Gynecology
PROC: (CPT 58661; principal; 2022-11-24 07:15)
DX: Z30.2 Encounter for sterilization (principal); R56.9 Unspecified convulsions; Z87.891 Personal history of nicotine dependence; N83.8 Other noninflammatory disorders of ovary, fallopian tube and broad ligament; I95.9 Hypotension, unspecified; Z79.899 Other long term (current) drug therapy
CPT/HCPCS: 58661; 00840; 81025; 85027; 88302; 88305; J7120; C1760; J2405

== ENCOUNTER → 2023-06-01 | Outpatient (CLI) | payer MEDICAID, SELFPAY ==
[2023-06-01 12:22] LABS: Absolute Lymphocyte Count 1.92 X10^3/uL (0.83-4.51); Absolute Neutrophil Count 3.9 X10^3/uL (2.0-7.7); Basophil# 0.03 X10^3/uL; Basophil% 0.5 % (0-1); Eosinophil# 0.13 X10^3/uL; Hematocrit 37.1 % (37-47); Hemoglobin 11.8 g/dL (12.0-15.0); Lymphocyte # 1.92 X10^3/ul (0.83-4.51); Lymphocyte % 29.9 % (19-41); Mean Corp Hgb Conc 31.8 g/dL (32-36); Mean Corpuscular Hgb 25.9 pg (27.0-32.0); Mean Corpuscular Volume 81.5 fL (81-99); Mean Platelet Vol. 10.4 fl (6.2-12.0); Monocyte# 0.44 X10^3/uL; Monocyte% 6.8 % (0-10); NRBC Flagged by Analyzer 0 % (0-5); Neutrophil % 60.6 % (47-70); Platelet Count 261 K/mm3 (150-450); RBC Distribution Width CV 12.7 % (11.6-14.6); RBC Distribution Width SD 37.2 fl (35.1-43.9); Red Blood Count 4.55 M/mm3 (4.2-5.4); White Blood Count 6.4 K/mm3 (4.4-11.0)
[2023-06-01 13:14] LABS: ALB/GLOB Ratio 1.1 RATIO (0.9-2.4); AST(SGOT) 16 U/L (15-37); Alanine Aminotransfer ALT/SGPT 16 U/L (13-56); Alkaline Phosphatase 53 U/L (45-117); Anion Gap 6 (5-15); BUN 8 mg/dL (7-18); BUN/Creat Ratio 11.6 RATIO (10-20); Chloride 109 mmol/L (98-107); Creatinine, Serum 0.69 mg/dL (0.55-1.02); EST Glomerular Filtration Rate 110 mL/min (>60); Est Glom Filt Rate - Afr Amer 133 mL/min (>60); Globulin 3.6 g/dL (2.2-4.2); Glucose 90 mg/dL (74-106); Potassium 3.6 mmol/L (3.5-5.1); Protein, Total 7.6 g/dL (6.4-8.2); Sodium Level 140 mmol/L (136-145); Thyroid Stim Hormone (TSH) 0.49 uIU/mL (0.358-3.74)
[2023-06-01 13:27] LABS: Vitamin B12 408 pg/mL (211-911)
== END | disposition home or self-care (01) ==
LOC: BIMLAB 08:57
PROVIDERS: PCP Internal Medicine; Referring Provider Internal Medicine; Visit Provider Internal Medicine
DX: F41.9 Anxiety disorder, unspecified (principal)
CPT/HCPCS: 36415; 80053; 82607; 84439; 84443; 85025

== ENCOUNTER → 2023-06-12 | Outpatient (CLI) | payer MEDICAID, SELFPAY ==
--- NOTE | 2023-06-12 09:42 | RAD_ITS ---
STUDY: X-RAY - RIGHT KNEE REASON FOR EXAM: Female, 23 years old. Right knee pain. TECHNIQUE: 4 views of the right knee. COMPARISON: None. FINDINGS: Normal visualized distal femur. Normal visualized proximal tibia and fibula. Normal proximal tibiofibular articulation. There is no demonstrated fracture. Normal medial femorotibial compartment. Normal lateral femorotibial compartment. Normal patellofemoral articulation. The soft tissue structures are unremarkable. RAD/Knee 4 or More Views IMPRESSION: Normal x-ray examination of the knee. Electronically Signed: Patrick Padilla MD at 8:59 EDT ,
== END | disposition home or self-care (01) ==
LOC: MTRAD 09:42
PROVIDERS: PCP Internal Medicine; Referring Provider Nurse Practitioner; Visit Provider Nurse Practitioner
DX: M25.561 Pain in right knee (principal)
CPT/HCPCS: 73564

== ENCOUNTER → 2023-07-11 | Outpatient (CLI) | payer MEDICAID, SELFPAY ==
--- NOTE | 2023-07-11 07:30 | MRI_ITS ---
STUDY: MRI LOWER EXTREMITY RIGHT THIGH REASON FOR EXAM: Female, 23 years old. Hamstring injury, knee pain right sided, xrays. TECHNIQUE: Standardized fat and water weighted pulse sequences were obtained in all 3 orthogonal planes. COMPARISON: Right knee radiographs dated 06/12/2023. FINDINGS: Normal subcutis adipose space. Normal quadriceps, adductor and hamstring muscles. Normal quadriceps extensor mechanism with normal rectus femoris, vastus medialis, intermedius and lateralis muscles. Normal hamstring tendon origin at the right ischial tuberosity. There is no hamstring muscle/tendon tear. Normal femur. MRI/Lower Ext/No Jt/w/o IMPRESSION: Normal right thigh. No hamstring muscle/tendon tear. Electronically Signed: Patrick Padilla MD at 9:36 EDT ,
== END | disposition home or self-care (01) ==
LOC: MRI 07:22
PROVIDERS: PCP Internal Medicine; Referring Provider Internal Medicine; Visit Provider Internal Medicine
DX: S76.309A Unspecified injury of muscle, fascia and tendon of the posterior muscle group at thigh level, unspecified thigh, initial encounter (principal); M25.561 Pain in right knee
CPT/HCPCS: 73718

== ENCOUNTER → 2023-08-10 | Outpatient (CLI) | payer MEDICAID, SELFPAY ==
[2023-08-10 15:17] LABS: Absolute Lymphocyte Count 2.02 X10^3/uL (0.83-4.51); Absolute Neutrophil Count 4.2 X10^3/uL (2.0-7.7); Basophil# 0.04 X10^3/uL; Basophil% 0.6 % (0-1); Eosinophil# 0.06 X10^3/uL; Eosinophils% 0.9 % (0-5); Hemoglobin 10.8 g/dL (12.0-15.0); Lymphocyte # 2.02 X10^3/ul (0.83-4.51); Lymphocyte % 30.2 % (19-41); Mean Corpuscular Hgb 25.2 pg (27.0-32.0); Mean Corpuscular Volume 83.9 fL (81-99); Mean Platelet Vol. 10.7 fl (6.2-12.0); Monocyte# 0.39 X10^3/uL; Monocyte% 5.8 % (0-10); NRBC Flagged by Analyzer 0 % (0-5); Neutrophil # 4.15 X10^3/uL (2.7-7.7); Neutrophil % 62.2 % (47-70); Platelet Count 260 K/mm3 (150-450); RBC Distribution Width CV 12.4 % (11.6-14.6); RBC Distribution Width SD 37.6 fl (35.1-43.9); Red Blood Count 4.29 M/mm3 (4.2-5.4); White Blood Count 6.7 K/mm3 (4.4-11.0)
[2023-08-10 15:41] LABS: ALB/GLOB Ratio 1.2 RATIO (0.9-2.4); AST(SGOT) 14 U/L (15-37); Alanine Aminotransfer ALT/SGPT 17 U/L (13-56); Alkaline Phosphatase 43 U/L (45-117); Anion Gap 8 (5-15); BUN 9 mg/dL (7-18); BUN/Creat Ratio 9.8 RATIO (10-20); Calcium,Total 8.9 mg/dL (8.5-10.1); Chloride 107 mmol/L (98-107); Creatinine, Serum 0.91 mg/dL (0.55-1.02); EST Glomerular Filtration Rate 80 mL/min (>60); Est Glom Filt Rate - Afr Amer 96 mL/min (>60); Globulin 3.4 g/dL (2.2-4.2); Glucose 62 mg/dL (74-106); Potassium 3.5 mmol/L (3.5-5.1); Protein, Total 7.4 g/dL (6.4-8.2); Sodium Level 141 mmol/L (136-145); T4 Free Direct 1.01 ng/dL (0.76-1.46); Thyroid Stim Hormone (TSH) 0.52 uIU/mL (0.358-3.74)
[2023-08-13 14:14] LABS: Ferritin 34 ng/mL (8-252); Iron 71 ug/dL (50-170); Iron Binding Capacity,Total 341 ug/dL (250-450)
== END | disposition home or self-care (01) ==
LOC: BIMLAB 11:28
PROVIDERS: PCP Internal Medicine; Referring Provider Internal Medicine; Visit Provider Internal Medicine
DX: R56.9 Unspecified convulsions (principal); D64.9 Anemia, unspecified
CPT/HCPCS: 36415; 80053; 82728; 83540; 83550; 83735; 84439; 84443; 85025

== ENCOUNTER 2023-09-28 08:20 | Day surgery (SDC) | payer MEDICAID, SELFPAY ==
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
[2023-09-28] VITALS (8 sets, daily range): BP systolic 101–116; BP diastolic 58–67; PULSE 56–88; RESP 16–18; TEMP 36.1–36.6; O2SAT 99–100; BMI 20.1
--- NOTE | 2023-09-28 08:39 | PRE.ANES_ITS ---
ASA Classification* ASA Classification ASA Classification: 2 Assessment & Plan Anesthesia* Anesthesia Assessment Anesthesia Assessment: Discussed sedation and/or anesthesia options, risks, benefits, and alternatives with patient/parents/legal guardian/POA. Questions invited. The patient/parents/legal guardian/POA seems to understand and agrees to proceed with anesthesia plan. Reviewed the physical assessment, medical history, allergy history and patient home medications list prior to surgery/procedure/anesthetic and documented any changes. Performed airway and anesthesia risk assessments. Anesthesia Type Anesthesia Type: MAC (see written pre anesthesia record for full assessment) Anesthesia Focused Assessment* Airway Assessment Mouth opens: >3 cm Mallampati Score: II Focused Labs Anesthesia Preop lab: CBC WBC 6.7 K/mm3 (4.4-11.0) 08/10/23 11:29 RBC 4.29 M/mm3 (4.2-5.4) 08/10/23 11:29 Hgb 10.8 g/dL (12.0-15.0) L 08/10/23 11:29 Hct 36.0 % (37-47) L 08/10/23 11:29 Plt Count 260 K/mm3 (150-450) 08/10/23 11:29 CHEMISTRY Potassium 3.5 mmol/L (3.5-5.1) 08/10/23 11:29 Sodium 141 mmol/L (136-145) 08/10/23 11:29 Magnesium 2.0 mg/dL (1.6-2.6) 08/10/23 11:29 BUN 9 mg/dL (7-18) 08/10/23 11:29 Creatinine 0.91 mg/dL (0.55-1.02) 08/10/23 11:29 Glucose 62 mg/dL (74-106) L 08/10/23 11:29 TSH 0.52 uIU/mL (0.358-3.74) 08/10/23 11:29 COAG Urine Test Negative Negative 11/24/22 06:30 Pre-Assessment Diagnosis/Proposed Procedure Planned Operative Procedure(s): Hysteroscopy,D&C, possible polypectomy, Symphion Anesthesia History 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 When Was Last Pacemaker Check QUESTION #4 FULL TEXT: You/Your Family Experience fever (hyperthermia) with Anesthesia Last Oral Intake Last Oral intake: Last Oral Intake NPO since Meds taken in AM with sips of water? Meds patient instructed to take am of surgery PONV PONV - statistical methods teacher: PONV - statistical methods teacher Female Yes 09/19/23 12:59 HX of Motion Sickness Yes 09/19/23 12:59 HX of N/V After Surgery No 09/19/23 12:59 Non-Smoker No 09/19/23 12:59 Duration of Surgery greater No 09/19/23 12:59 than 60 minutes Number of Risk Factors 2 09/19/23 12:59 PONV Score Moderate Risk 09/19/23 12:59 Height & Weight Height & Weight: Anesthesia: Height & Weight Height 5 ft 2 in 09/20/23 14:54 Respiratory Assessment Respiratory Assessment - statistical methods teacher: Respiratory Tract Infection Hx - statistical methods teacher Hx Respiratory Tract Infection No 09/19/23 12:59 STOP Sleep Apnea STOP Sleep Apnea - statistical methods teacher: STOP Sleep Apnea - statistical methods teacher Hx Hypertension No 09/19/23 12:59 Hx Sleep Apnea No 09/19/23 12:59 CPAP BIPAP Do you snore loudly (louder No 09/19/23 12:59 than talking or can be heard Do you often feel tired/ No 09/19/23 12:59 fatigued/ sleepy during daytime? Has anyone observed you stop No 09/19/23 12:59 breathing during sleep? STOP Results Negative 09/19/23 12:59 QUESTION #5 FULL TEXT : Do you snore loudly (louder than talking or can be heard through closed doors)? Tobacco Use History Tobacco Use History - statistical methods teacher: Tobacco Use History - statistical methods teacher Tobacco Use Non-smoker 06/24/20 13:09 Smoking Status Current every day smoker 09/19/23 12:59 Hx Tobacco Use Yes 09/19/23 12:59 Years Smoking Packs Smoked per Day Smoking Cessation Date was within the last 15 years Hx Smoking Cessation Date 01/19/01 09/19/23 12:59 Hx Smoking Cessation No 09/19/23 12:59 Counseling Hematologic Medial History Hematologic Hx - statistical methods teacher: Hematologic Medical Hx - integration software developer Hx of Blood Transfusion No 09/19/23 12:59 Hx of Transfusion in last 3 No 09/19/23 12:59 Months Date of Last Transfusion (if within last 3 months) Ever experience any problems No 09/19/23 12:59 with transfusion(s)? Specify any problems Hx of Preganancy in last 3 N/A 09/19/23 12:59 Months Nurse Filling Out Transfusion NBUCHER 09/19/23 12:59 & Questions: Date: 09/19/23 09/19/23 12:59 Time: 13:00 09/19/23 12:59 Patient unable to answer at this time (ie. confused, unrespo /Reproduction History /Reproductive History - statistical methods teacher: /Reproductive Hx- statistical methods teacher Hx Now No 09/19/23 12:59 Gestational Age (in weeks): EDC: Hx Hx Para Hx Section SAB No 09/19/23 12:59 Active Medications Active Medications: Current Medications Generic Name Dose Route Start Last Admin Trade Name Freq PRN Reason Stop Dose Admin Lactated Ringer's 1,000 mls @ 15 mls/hr 09/28/23 08:30 IV .Q48H PAM PFSH Medical History Nutcracker phenomenon of renal vein Syncopal seizure Gastrocnemius strain Hamstring injury Varicose veins of bilateral lower extremities with pain Wears contact lenses Wears glasses Depression Arthritis Kidney stones Back pain Smoker Shortness of breath on exertion History of edema Cardiology follow-up encounter History of irregular heartbeat URI (upper respiratory infection) Lightheadedness Encounter for vitamin deficiency screening Screening for thyroid disorder Headache Polyhydramnios depression Anxiety Seizures Mitral valve prolapse Nausea Migraines Hypotension Anemia Iron malabsorption Anemia affecting History of depression Hx of renal calculi Home Medications ?Medication ?Instructions ?Recorded ?Last Taken ?Type compress.stocking,knee,reg,lrg #2 ea 06/12/23 Unknown Rx crutches #2 ea 06/29/23 Unknown Rx leg brace (Knee Support Brace) #1 ea 06/29/23 Unknown Rx sertraline 50 mg tablet 75 mg (1.5 x 50 mg) PO QHS 3 06/29/23 Unknown Rx months #135 tabs levetiracetam 250 mg tablet 250 mg PO BID #60 tabs 08/10/23 Unknown Rx (Keppra) midodrine 5 mg tablet 10 mg PO TID 09/19/23 Unknown History Allergy/AdvReac Type Severity Reaction Status Date / Time morphine AdvReac Severe Other Verified 09/20/23 14:54 Family History Grandmother Diabetes CVA (cerebral vascular accident) Mother Myocardial infarction Hypertension CVA (cerebral vascular accident) Sister Seizures Surgical History History of wisdom tooth extraction History of bilateral salpingectomy Hx of surgical procedure H/O tilt table evaluation (11/2019) Social History Smoking Status: Current every day smoker tobacco type: cigarettes and e- cigarettes alcohol intake: never substance use type: does not use Review of Systems (Anesthesia) ROS Narrative System reviewed and no additional complaints, except as documented.
[2023-09-28] MEDS: Lactated Ringers 1,000 ML 15 ML IV ×2 (08:50→13:25)
--- NOTE | 2023-09-28 10:05 | EMB_PTH ---
PATIENT: DENISE [place]GLIN [place] [facility] [place][id number] AGE/SX: 23/F ROOM: RE09/28/[address]: Dr. Marisol Holloway, MDDOB: 2000 BED: DIS: 09/28/2023 SPEC #: [id number] RECD: 09/28/23 13:34 STATUS: GRACIE MARTY #: [id number] SERAFIN: 09/28/23 10:[address]: Marisol Holloway DEPT: SURGICAL PATHOLOGY RECD BY: Lissett Alvarez ENTERED: 10/01/23 09:33 SP TYPE: ENDOM BX/C GEMMA DR: Dr. Benjamin Walker MD Tissues: Endometrium, NOS Procedures: Surgery Specimen Level IV HEADER OPERATION: Hysteroscopy, D&C, Symphion PRE-OP DIAGNOSIS: Abnormal uterine bleeding TISSUE SUBMITTED: Endometrial curettings MICROSCOPIC DIAGNOSIS Endometrial curettings: Proliferative endometrium. SJ. 10/02/2023 MICROSCOPIC DESCRIPTION Slides are reviewed. GROSS DESCRIPTION Received in fixative is one container labeled with the patient's name and designated Endometrial curettings. The specimen consists of multiple irregular fragments of vargas-pink soft tissue mixed with blood clot that in aggregate measure 3.0 x 2.5 x 0.3 cm. The specimen is totally submitted in one cassette. YOLY/ 10/01/2023 TC:4 CPT:50233
--- NOTE | 2023-09-28 10:15 | PCM.DC ---
Discharge Instructions Diet Discharge Diet: No restrictions Activity May resume sexual activity in: 1 week Dressing / Incision Call your doctor if you observe: Fever of 101 or Higher, Inability to urinate, Using more than 1 pad per hour and Uncontrolled pain Follow Up Care Please Follow Up With: Marisol Holloway MD When: 1-2 weeks post OP if you need an appointment please call [phone] Test Results: Test results from this visit will be discussed in further detail at your follow-up appointment, if applicable. Discharge Plan Admission Attending Provider: Marisol Holloway Primary Care Provider: Benjamin Walker Instructions Print Language: Ukrainian Discharge Orders/Prescriptions Prescriptions: No Action (DME) compress.stocking,knee,reg,lrg Misc See Rx Instructions .MEDSUPPLY Qty: 2 1RF Rx Instructions: wear daily for venous insufficiency 20-30 mmHg sertraline 50 mg tablet 75 mg PO QHS 90 Days Qty: 135 1RF (DME) Knee Support Brace Misc See Rx Instructions .Route Qty: 1 0RF Rx Instructions: As directed (DME) crutches See Rx Instructions .Route .MEDSUPPLY Qty: 2 0RF Rx Instructions: As directed levetiracetam [Keppra] 250 mg tablet 250 mg PO BID Qty: 60 1RF midodrine 5 mg tablet 10 mg PO TID Rx Instructions: do not give last dose of day after 6PM or within 4 hrs of bedtime Referrals / Follow Up: Benjamin Walker MD [Primary Care Provider] - Disposition Disposition (needs filled in before D/C Order can be placed): Home, Self Care
--- NOTE | 2023-09-28 12:52 | OP.PCM_ITS ---
Report of Operation Date of Procedure: 09/28/23 Pre-Operative Diagnosis: AUB Post-Operative Diagnosis: Same Surgery/Procedure Performed:: Hysteroscopy, D&C Description of Surgical Findings:: both tubal ostia visualized Surgeon: Marisol Holloway key maker: None Type of Anesthesia: MAC Specimen's removed: endometrial curettings Estimated Blood Loss (mL): 5cc Fluids Replaced: 800 Description of Procedure: Informed consent was obtained the patient was taken the operating room she was placed in supine position. She was given anesthesia. She was then placed in the [facility] where she was prepped and draped in the normal sterile fashion. bladder drained prior to start of procedure. At this time the weighted speculum was placed in the posterior fornix of vagina. Single-tooth tenaculum was used to gently grasp the anterior lip the cervix. At this time the uterine cavity was sounded to approximately 8 cm. Gentle dilatation was performed once adequate dilatation of the cervix was achieved the hysteroscope using normal saline as a distention medium was placed. Tubal ostia visualized, had some areas of thickened tissue but no well defined polyps noted. Symphion resecting device used to obtain endometrial curettings and to perform polypectomy. Tissue will be sent to pathology for evaluation. Tenaculum removed. Good hemostasis. Instrument, lap count correct x 2. Vaginal Sweep was negative. Grafts/Implants Used: none Procedure Start Time: 12:41 Procedure Stop Time: 12:51 Complications none Admit VTE Documentation VTE Present on Admission: Yes VTE Mechan Device Prophylaxis: SCD's VTE Pharm Prophylaxis ordered?: No Reason prophylaxis not ordered:: Procedure Not Indicated
--- NOTE | 2023-09-28 13:05 | PCM.POST.ANE ---
Anesthesia: Postop Eval I Current Vital Signs Temperature: 97.8 F Pulse Rate: 88 Blood Pressure: 114/62 Respiratory Rate: 18 Pulse Ox: 100 Assessment Airway patent: Yes Spontaneous unlabored respirations: Yes nausea: No Vomiting: No Anesthesia Complication: No Fluid Hydration Crystalloid volume administer (ml): 800 Total IV fluid infused: 800 Progress Note Anesthesia document: Postop Eval 1 completed: Yes
--- NOTE | 2023-09-28 13:22 | POSTOPAN2_ITS ---
Anesthesia Postop Eval I Sum Postop Eval Completion status Anesthesia document: Postop Eval 1 completed: Yes Anesthesia Postop Eval I Summary Anesthesia Postop Eval I Summary: Anesthesia Postop Eval I: Assessment Summary Airway patent Yes 09/28/23 13:05 [email or web address] Spontaneous unlabored Yes 09/28/23 13:05 [email or web address] respirations Mental status nausea No 09/28/23 13:05 [email or web address] Vomiting No 09/28/23 13:05 [email or web address] Anesthesia Postop Eval I: Fluid Summary Crystalloid volume administer 800 09/28/23 13:05 [email or web address] (ml) Colloids volume administered ( ml) Blood Product volume administered (ml) Total IV fluid infused 800 09/28/23 13:05 [email or web address].CSIR Anesthesia Postop Eval I: Summary Notes Anesthesia Complication No 09/28/23 13:05 [email or web address]CSIR Anesthesia Complication Comment: Post-operative progress note Anesthesia: Postop Eval II Evaluation Mental status: Awake Pain Level: 0 nausea: No Vomiting: No
--- NOTE | 2023-09-28 13:22 | PCM.POSTANE2 ---
Anesthesia Postop Eval I Sum Postop Eval Completion status Anesthesia document: Postop Eval 1 completed: Yes Anesthesia Postop Eval I Summary Anesthesia Postop Eval I Summary: Anesthesia Postop Eval I: Assessment Summary Airway patent Yes 09/28/23 13:05 [email or web address] [email or web address] Spontaneous unlabored Yes 09/28/23 13:05 [email or web address].[email or web address] respirations Mental status nausea No 09/28/23 13:05 [email or web address].[email or web address] Vomiting No 09/28/23 13:05 [employer] [email or web address] Anesthesia Postop Eval I: Fluid Summary Crystalloid volume administer 800 09/28/23 13:05 [employer] [email or web address] (ml) Colloids volume administered ( ml) Blood Product volume administered (ml) Total IV fluid infused 800 09/28/23 13:05 [employer] [email or web address].CSIR Anesthesia Postop Eval I: Summary Notes Anesthesia Complication No 09/28/23 13:05 HELI[employer] [email or web address].[email or web address] Anesthesia Complication Comment: Post-operative progress note Anesthesia: Postop Eval II Evaluation Mental status: Awake Pain Level: 0 nausea: No Vomiting: No
== END 2023-09-28 14:40 | disposition home or self-care (01) ==
LOC: SDC 08:22 → AC 08:23
PROVIDERS: PCP Internal Medicine; Referring Provider Obstetrics & Gynecology; Visit Provider Obstetrics & Gynecology
PROC: 0UB98ZZ Excision of Uterus, Via Natural or Artificial Opening Endoscopic (ICD-10-PCS; CPT 58558; principal; 2023-09-28 09:50)
DX: N93.9 Abnormal uterine and vaginal bleeding, unspecified (principal); Z87.891 Personal history of nicotine dependence; Z79.899 Other long term (current) drug therapy
CPT/HCPCS: 58558; 00952; 88305; J7120; J2405

== ENCOUNTER → 2023-10-18 | Outpatient (CLI) | payer MEDICAID, SELFPAY | END | disposition home or self-care (01) | LOC: PSN 08:11 | PROVIDERS: PCP Internal Medicine; Referring Provider Internal Medicine; Visit Provider Internal Medicine | DX: R56.9 Unspecified convulsions (principal); R55 Syncope and collapse | CPT/HCPCS: 95819 ==

== ENCOUNTER → 2024-01-30 | Outpatient (CLI) | payer MEDICAID, SELFPAY ==
[2024-01-30 16:35] LABS: Absolute Lymphocyte Count 1.55 X10^3/uL (0.83-4.51); Absolute Neutrophil Count 2.5 X10^3/uL (2.0-7.7); Basophil# 0.02 X10^3/uL; Basophil% 0.4 % (0-1); Eosinophil# 0.12 X10^3/uL; Eosinophils% 2.6 % (0-5); Hematocrit 36.1 % (37-47); Hemoglobin 11.5 g/dL (12.0-15.0); Lymphocyte # 1.55 X10^3/ul (0.83-4.51); Mean Corp Hgb Conc 31.9 g/dL (32-36); Mean Corpuscular Hgb 25.7 pg (27.0-32.0); Mean Corpuscular Volume 80.8 fL (81-99); Mean Platelet Vol. 9.9 fl (6.2-12.0); Monocyte# 0.37 X10^3/uL; Monocyte% 8.1 % (0-10); NRBC Flagged by Analyzer 0 % (0-5); Neutrophil # 2.47 X10^3/uL (2.7-7.7); Neutrophil % 54.2 % (47-70); Platelet Count 284 K/mm3 (150-450); RBC Distribution Width CV 11.9 % (11.6-14.6); RBC Distribution Width SD 34.7 fl (35.1-43.9); Red Blood Count 4.47 M/mm3 (4.2-5.4); White Blood Count 4.6 K/mm3 (4.4-11.0)
[2024-01-30 17:10] LABS: ALB/GLOB Ratio 1.1 RATIO (0.9-2.4); AST(SGOT) 13 U/L (15-37); Alanine Aminotransfer ALT/SGPT 16 U/L (13-56); Alkaline Phosphatase 51 U/L (45-117); Anion Gap 4 (5-15); BUN 10 mg/dL (7-18); BUN/Creat Ratio 15.9 RATIO (10-20); Calcium,Total 9.1 mg/dL (8.5-10.1); Chloride 108 mmol/L (98-107); Creatinine, Serum 0.63 mg/dL (0.55-1.02); EST Glomerular Filtration Rate 122 mL/min (>60); Est Glom Filt Rate - Afr Amer 147 mL/min (>60); Globulin 3.8 g/dL (2.2-4.2); Glucose 90 mg/dL (74-106); Potassium 3.5 mmol/L (3.5-5.1); Protein, Total 7.8 g/dL (6.4-8.2); Sodium Level 139 mmol/L (136-145)
== END | disposition home or self-care (01) ==
LOC: BIMLAB 15:23
PROVIDERS: PCP Internal Medicine; Referring Provider Physician Assistant; Visit Provider Physician Assistant
DX: R51.9 Headache, unspecified (principal); D64.9 Anemia, unspecified
CPT/HCPCS: 36415; 80053; 85025

== ENCOUNTER → 2024-05-14 | Outpatient (CLI) | payer MEDICAID, SELFPAY | END | disposition home or self-care (01) | PROVIDERS: Psychiatry & Neurology Neurology; PCP Internal Medicine; Referring Provider Psychiatry & Neurology Neurology; Visit Provider Psychiatry & Neurology Neurology | DX: G43.019 Migraine without aura, intractable, without status migrainosus (principal); R56.9 Unspecified convulsions; I95.9 Hypotension, unspecified; R41.3 Other amnesia | CPT/HCPCS: 36415; 80177 ==

== ENCOUNTER → 2024-08-07 | Outpatient (CLI) | payer OTHER, SELFPAY ==
[2024-08-07 17:23] LABS: Absolute Lymphocyte Count 2.31 X10^3/uL (0.83-4.51); Absolute Neutrophil Count 5.2 X10^3/uL (2.0-7.7); Basophil# 0.04 X10^3/uL; Basophil% 0.5 % (0-1); Eosinophil# 0.34 X10^3/uL; Eosinophils% 4.1 % (0-5); Hematocrit 35.6 % (37-47); Hemoglobin 11.5 g/dL (12.0-15.0); Lymphocyte # 2.31 X10^3/ul (0.83-4.51); Lymphocyte % 27.5 % (19-41); Mean Corp Hgb Conc 32.3 g/dL (32-36); Mean Corpuscular Hgb 25.7 pg (27.0-32.0); Mean Corpuscular Volume 79.6 fL (81-99); Mean Platelet Vol. 9.7 fl (6.2-12.0); NRBC Flagged by Analyzer 0 % (0-5); Neutrophil # 5.17 X10^3/uL (2.7-7.7); Neutrophil % 61.5 % (47-70); Platelet Count 275 K/mm3 (150-450); RBC Distribution Width CV 12.3 % (11.6-14.6); RBC Distribution Width SD 35.6 fl (35.1-43.9); Red Blood Count 4.47 M/mm3 (4.2-5.4); White Blood Count 8.4 K/mm3 (4.4-11.0)
[2024-08-07 18:26] LABS: Anion Gap 12 (5-15); BUN 11 mg/dL (4-19); BUN/Creat Ratio 16.3 RATIO (10-20); Calcium,Total 9.6 mg/dL (7.6-11.0); Carbon Dioxide 23.1 mmol/L (21.0-32.0); Chloride 105 mmol/L (98-108); EST Glomerular Filtration Rate 122 (>60); Glucose 107 mg/dL (70-99); Potassium 4.1 mmol/L (3.3-5.1); Sodium Level 140 mmol/L (133-145)
[2024-08-08 10:12] LABS: Ferritin 38 ng/mL (22-378); Iron Binding Capacity,Total 372 ug/dL (250-450)
[2024-08-08 10:18] LABS: Iron 47 ug/dL (50-170); Iron Binding Capacity,Unsat 325 ug/dL (228-428); PERCENT IRON SATURATION 12.6 % (13-59)
== END | disposition home or self-care (01) ==
LOC: LAB 16:39
PROVIDERS: PCP Internal Medicine; Referring Provider Internal Medicine; Visit Provider Internal Medicine
DX: D64.9 Anemia, unspecified (principal); I95.1 Orthostatic hypotension
CPT/HCPCS: 36415; 80048; 82728; 83540; 83550; 85025